=== PATIENT | female | born 1990 | race Two or more races ===

== ENCOUNTER 2017-07-02 22:36 | Emergency (ER) | payer MEDICAID ==
[~2017-07-02] VITALS: Ht 152.4 cm; Wt 92.5 kg
[~2017-07-02 22:36] MED LIST: PREN-96 PO
[2017-07-02 23:34] LABS: Basophils # (auto) 0.2 uL; Eosinophils # (auto) 0.6 uL; Eosinophils % (auto) 3.8 % (0.0-7.0); Hemoglobin 15.7 g/dL (12.2-16.2); Lymphocytes # (auto) 4.1 uL; Mean Corpuscular Hemoglobin 29.9 pg (28.0-32.0); Mean Corpuscular Hgb Conc. 33.4 g/dL (32.0-36.0); Mean Corpuscular Volume 89.6 fL (80.0-100.0); Mean Platelet Volume 9.6 fL (7.4-10.4); Monocytes # (auto) 0.9 uL; Monocytes % (auto) 5.6 % (0.0-12.0); Neutrophils % (auto) 63.6 % (37.0-80.0); Platelet Count (auto) 344 10^3/uL (140-450); Red Cell Distribution Width 12.1 % (11.6-16.0); SUSPECT SEE PRINTOUT; White Blood Cell 15.8 10^3/uL (4.4-10.8)
[2017-07-02 23:35] LABS: Urine Bilirubin Negative (Negative); Urine Blood 2+ /uL (Negative); Urine Color Yellow (Yellow); Urine Glucose Normal (Normal); Urine Ketone TRACE (Negative); Urine Mucus FEW (None Seen); Urine Nitrite Negative (Negative); Urine RBC 2 /hpf (0 - 4); Urine Squamous Epithelial Cell FEW /hpf (<5); Urine pH 5.5 (5.0-8.0)
[2017-07-02 23:51] LABS: Albumin 4.1 g/dL (3.4-5.0); BUN/Creatinine Ratio 17.3; Calcium 8.9 mg/dL (8.5-10.1); Potassium 3.8 mmol/L (3.5-5.1)
[2017-07-02 23:54] LABS: Bilirubin, Total 0.4 mg/dL (0.2-1.0); Total Protein 8.1 g/dL (6.4-8.2)
[2017-07-03 00:29] LABS: INR 0.99 (0.9-1.15); Prothrombin Time 10.8 sec (9.37-12.3)
[2017-07-03 03:18] LABS: Partial Thromboplastin Time 27.5 sec (22.64-33.71)
[2017-07-03 07:23] VITALS: BP 129/77
== END 2017-07-03 07:24 | disposition home or self-care (01) ==
LOC: ER 22:36
DX: K64.4 Residual hemorrhoidal skin tags (principal); K76.0 Fatty (change of) liver, not elsewhere classified; I88.0 Nonspecific mesenteric lymphadenitis; R94.5 Abnormal results of liver function studies; F12.10 Cannabis abuse, uncomplicated
CPT/HCPCS: 36415; 74176; 80053; 81001; 81025; 82150; 82270; 83690; 85025; 85610; 85730

== ENCOUNTER 2017-11-08 08:33 | Emergency (ER) | payer MEDICAID ==
[~2017-11-08] VITALS: Ht 154.9 cm; Wt 90.7 kg
[2017-11-08 09:00] VITALS: BP 123/84
== END 2017-11-08 10:05 | disposition home or self-care (01) ==
LOC: ER 08:33
DX: J20.9 Acute bronchitis, unspecified (principal)

== ENCOUNTER 2018-06-15 17:12 | Emergency (ER) | payer MEDICAID ==
[~2018-06-15] VITALS: Ht 152.4 cm; Wt 90.7 kg
[2018-06-15 17:20] VITALS: BP 145/78
== END 2018-06-15 20:04 | disposition home or self-care (01) ==
LOC: ER 17:12
DX: J02.9 Acute pharyngitis, unspecified (principal)

== ENCOUNTER 2019-01-26 10:39 | Emergency (ER) | payer MEDICAID ==
[~2019-01-26] VITALS: Ht 152.4 cm; Wt 94.8 kg
[2019-01-26 12:42] VITALS: BP 124/63
== END 2019-01-26 13:17 | disposition home or self-care (01) ==
LOC: ER 10:43
DX: L03.211 Cellulitis of face (principal); F12.90 Cannabis use, unspecified, uncomplicated; Z79.899 Other long term (current) drug therapy
CPT/HCPCS: 81025

== ENCOUNTER 2019-03-23 09:07 | Emergency (ER) | payer MEDICAID ==
[~2019-03-23] VITALS: Ht 152.4 cm; Wt 91.6 kg
[2019-03-23 09:16] VITALS: BP 123/67
== END 2019-03-23 10:09 | disposition home or self-care (01) ==
LOC: ER 09:07
DX: B37.89 Other sites of candidiasis (principal); M54.5 Low back pain; F12.10 Cannabis abuse, uncomplicated

== ENCOUNTER 2022-03-17 03:01 | Inpatient (IN) | payer MEDICAID ==
[~2022-03-17] VITALS: Ht 162.8 cm; Wt 93.0 kg
[2022-03-17 06:59] LABS: Basophils # (auto) 0.2 10 ^3/uL (0-0.2); Basophils % (auto) 1.1 % (0.0-2.0); Eosinophils # (auto) 0.2 10 ^3/uL (0-0.8); Eosinophils % (auto) 1.3 % (0.0-7.0); Hematocrit 47.1 % (36.0-46.0); Hemoglobin 16.4 g/dL (12.2-16.2); Lymphocytes # (auto) 2.7 10 ^3/uL (0.4-5.4); Mean Corpuscular Hemoglobin 31.8 pg (28.0-32.0); Mean Corpuscular Hgb Conc. 34.7 g/dL (32.0-36.0); Mean Corpuscular Volume 91.5 fL (80.0-100.0); Monocytes # (auto) 0.8 10 ^3/uL (0-1.3); Monocytes % (auto) 3.9 % (0.0-12.0); Neutrophils # (auto) 15.4 10 ^3/uL (1.6-8.6); Neutrophils % (auto) 79.7 % (37.0-80.0); Nucleated Red Blood Cells % 0.1 %; Red Blood Cells 5.14 10^6/uL (4.0-5.20); Red Cell Distribution Width 13.9 % (11.8-14.3); White Blood Cell 19.3 10^3/uL (4.4-10.8)
[2022-03-17 07:22] LABS: Potassium 3.9 mmol/L (3.5-5.1)
[2022-03-17 07:28] LABS: Albumin 3.7 g/dL (3.4-5.0); BUN/Creatinine Ratio 12.5; Bilirubin, Total 1.4 mg/dL (0.2-1.0); Calcium 9.1 mg/dL (8.5-10.1); Total Protein 8.8 g/dL (6.4-8.2)
[2022-03-17] MEDS ORDERED: METOCLOPRAMIDE HCL 5MG/ml INJ 2ml VIAL IV ONE (08:30)
[2022-03-17] MEDS ORDERED: KETOROLAC TROMETH 30 MG/ML 1ML VIAL IV ONE (08:30)
[2022-03-17] MEDS ORDERED: SODIUM CHLORIDE 0.9% 1,000 ML IV ONE ×2 (08:45→11:30)
[2022-03-17] MEDS ORDERED: IOHEXOL 300 MG/ML 100ML BOTTLE IJ ONE (12:38)
[2022-03-17] MEDS ORDERED: metroNIDAZOLE 500MG/100ML 100 ML IV ONE (14:00)
[2022-03-17] MEDS ORDERED: cefTRIAXone 1GM/50ML D5W 50 ML IV ONE (14:00)
[2022-03-17 14:32] LABS: Urine Bacteria NONE SEEN /hpf (None Seen); Urine Blood Negative /uL (Negative); Urine Specific Gravity 1.019 (1.001-1.035); Urine WBC 1 /hpf (0 - 5)
[2022-03-17] MEDS ORDERED: hydrALAZINE HCL 20 MG/ML VL IV PRN (15:00)
[2022-03-17] MEDS ORDERED: MORPHINE SULFATE INJECTION 2 MG/ML SYRG IV PRN ×2 (15:00→18:45)
[2022-03-17] MEDS ORDERED: ONDANSETRON HCL 4 MG/2 ML VIAL IV PRN ×2 (15:00→18:45)
[2022-03-17] MEDS ORDERED: DOCUSATE SOD 100 MG CAP PO PRN (15:00)
[2022-03-17] MEDS ORDERED: FAMOTIDINE (10MG/ML) 2ML VL IV ONE (15:00)
[2022-03-17] MEDS ORDERED: HYDROcodone-ACET 5/325MG TAB PO PRN (15:00)
[2022-03-17] MEDS ORDERED: SODIUM CHLORIDE 0.9% 1,000 ML IV SCH (15:00)
[2022-03-17 17:17] LABS: Magnesium 2.1 mg/dL (1.6-2.6)
[2022-03-17] MEDS ORDERED: METOCLOPRAMIDE HCL 5MG/ml INJ 2ml VIAL IV PRN (18:45)
[2022-03-17] MEDS ORDERED: HYDROmorphone HCL 2 MG/ML VL/or syr IV PRN (18:45)
[2022-03-17] MEDS ORDERED: NITROGLYCERIN 0.4 MG SL TAB SL PRN (18:45)
[2022-03-17] MEDS ORDERED: SUCCINYLCHOLINE CHLORIDE 20 MG/ML 10ML VIAL IV ONE (18:46)
[2022-03-17] MEDS ORDERED: BUPIVACAINE W/ EPINEPH 0.25% INJ 50ML MDV ONE (18:46)
[2022-03-17] MEDS ORDERED: MIDAZOLAM HCL 2MG/2ML 2ml VIAL (1mg/ml) ONE (18:49)
[2022-03-17] MEDS ORDERED: fentaNYL CITRATE 100 MCG/2 ML VL ONE (18:49)
[2022-03-17] MEDS ORDERED: ceFAZolin 1GM VL ONE (19:16)
[2022-03-17] MEDS ORDERED: LIDOCAINE 2% (LOCAL ANESTH.) PF 5ml SDV ONE (19:16)
[2022-03-17] MEDS ORDERED: ONDANSETRON HCL 4 MG/2 ML VIAL ONE (19:16)
[2022-03-17] MEDS ORDERED: METOCLOPRAMIDE HCL 5MG/ml INJ 2ml VIAL ONE (19:16)
[2022-03-17] MEDS ORDERED: GLYCOPYRROLATE 0.2 MG/ML 1ML VIAL ONE (19:16)
[2022-03-17] MEDS ORDERED: NEOSTIGMINE 1 MG/ML INJ (10mg/10ML VIAL) ONE (19:16)
[2022-03-17] MEDS ORDERED: PROPOFOL 10 MG/ML 20 ML IV ONE (19:16)
[2022-03-17 20:40] VITALS: BP 114/57
[2022-03-17] MEDS ORDERED: metroNIDAZOLE 500MG/100ML 100 ML IV SCH (22:00)
[2022-03-18] MEDS ORDERED: cefTRIAXone 1GM/50ML D5W 50 ML IV SCH (09:00)
[2022-03-18] MEDS ORDERED: ENOXAPARIN SOD 40 MG/0.4 ML SYRINGE SC SCH (10:00)
[2022-03-18] MEDS ORDERED: FAMOTIDINE (10MG/ML) 2ML VL IV SCH (10:00)
== END 2022-03-17 21:00 | disposition home or self-care (01) | DRG 233 ==
LOC: ER 03:01 → OVERFLOW 18:35
PROVIDERS: ADMIT Hospitalist; ATTEND Hospitalist
PROC: 0DTJ4ZZ Resection of Appendix, Percutaneous Endoscopic Approach (ICD-10-PCS; principal; 2022-03-17 18:51)
DX: K35.33 Acute appendicitis with perforation, localized peritonitis, and gangrene, with abscess (principal); E88.81 Metabolic syndrome and other insulin resistance; D72.829 Elevated white blood cell count, unspecified; E66.01 Morbid (severe) obesity due to excess calories; K21.9 Gastro-esophageal reflux disease without esophagitis; R74.8 Abnormal levels of other serum enzymes; Z82.49 Family history of ischemic heart disease and other diseases of the circulatory system; Z83.3 Family history of diabetes mellitus; Z20.822 Contact with and (suspected) exposure to COVID-19; Z68.35 Body mass index [BMI] 35.0-35.9, adult
CPT/HCPCS: 36415; 71046; 74177; 76705; 76856; 80053; 81001; 81025; 82607; 83690; 83735; 83880; 84100; 84443; 84484; 84702; 85025; 86850; 86900; 86901; 87086; 93005; 96361; 96365; 96368; 96375; G0378; J0330; J0690; J0696; J1885; J2001; J2250; J2405; J2704; J3490

== ENCOUNTER 2023-10-19 07:31 | Emergency (ER) | payer MEDICAID ==
[~2023-10-19] VITALS: Ht 149.9 cm; Wt 102.0 kg
[2023-10-19 08:12] LABS: Basophils # (auto) 0.1 10 ^3/uL (0-0.2); Basophils % (auto) 1.3 % (0.0-2.0); Eosinophils # (auto) 0.6 10 ^3/uL (0-0.8); Eosinophils % (auto) 5.8 % (0.0-7.0); Hematocrit 49.2 % (36.0-46.0); Hemoglobin 16.3 g/dL (12.2-16.2); Lymphocytes % (auto) 30.7 % (10.0-50.0); Mean Corpuscular Hemoglobin 30.6 pg (28.0-32.0); Mean Corpuscular Volume 92.7 fL (80.0-100.0); Monocytes # (auto) 0.5 10 ^3/uL (0-1.3); Monocytes % (auto) 4.7 % (0.0-12.0); Neutrophils # (auto) 5.6 10 ^3/uL (1.6-8.6); Neutrophils % (auto) 57.5 % (37.0-80.0); Nucleated Red Blood Cells % 0.1 %; Red Blood Cells 5.31 10^6/uL (4.0-5.20); Red Cell Distribution Width 14.2 % (11.8-14.3); White Blood Cell 9.7 10^3/uL (4.4-10.8)
[2023-10-19 08:33] LABS: Alanine Aminotransferase 246 U/L (7-40); Alkaline Phosphatase 139 U/L (46-116); Anion Gap 9 (5-15); BUN/Creatinine Ratio 8.5 (10.0-20.0); Blood Urea Nitrogen 5 mg/dL (9-23); Calcium 9.6 mg/dL (8.5-10.1); Carbon Dioxide 24 mmol/L (20-30); Chloride 106 mmol/L (98-107); Glucose 112 mg/dL (74-106); Potassium 4.2 mmol/L (3.5-5.1); Sodium 139 mmol/L (136-145)
[2023-10-19 08:34] LABS: Albumin 4.7 g/dL (3.2-4.8); Aspartate Aminotransferase 311 U/L (13-40); Bilirubin, Total 0.5 mg/dL (0.2-1.0); Total Protein 8.3 g/dL (5.7-8.2)
[2023-10-19 08:54] LABS: INR 1.1 (0.9-1.15); Partial Thromboplastin Time 29.8 SEC (24.5-34.5); Prothrombin Time 11.5 sec (9.3-11.8)
[2023-10-19] MEDS ORDERED: ALBUAER3 IN (11:10)
[2023-10-19] MEDS ORDERED: PRED20TA2 PO (11:12)
[2023-10-19 11:48] VITALS: BP 137/82; PULSE 84; RESP 18; TEMP 98.8; O2SAT 98
== END 2023-10-19 11:17 | disposition home or self-care (01) ==
LOC: ER 07:31
DX: J45.909 Unspecified asthma, uncomplicated (principal); R09.1 Pleurisy; Z79.899 Other long term (current) drug therapy
CPT/HCPCS: 36415; 71045; 80053; 84484; 85025; 85610; 85730; 93005

== ENCOUNTER 2024-01-18 19:52 | Emergency (ER) | payer MEDICAID ==
[~2024-01-18] VITALS: Ht 149.9 cm; Wt 100.0 kg
[~2024-01-18 19:52] MED LIST changes: +ALBUAER3 IN; +PRED20TA2 PO
[2024-01-18 21:21] LABS: Urine WBC None Seen /hpf (0 - 5)
[2024-01-18 21:32] LABS: Urine Bacteria NONE SEEN /hpf (None Seen); Urine Blood Negative /uL (Negative); Urine Clarity Clear (Clear); Urine Color Colorless (Yellow); Urine Protein, UAD Negative (Negative); Urine Specific Gravity 1.002 (1.001-1.035); Urine Urobilinogen Normal (Negative); Urine pH 5.5 (5.0-8.0)
[2024-01-18 21:37] LABS: Basophils # (auto) 0.3 10 ^3/uL (0-0.2); Basophils % (auto) 2.1 % (0.0-2.0); Eosinophils # (auto) 0.9 10 ^3/uL (0-0.8); Eosinophils % (auto) 5.9 % (0.0-7.0); Hematocrit 47.8 % (36.0-46.0); Lymphocytes # (auto) 4.7 10 ^3/uL (0.4-5.4); Lymphocytes % (auto) 30.4 % (10.0-50.0); Mean Corpuscular Hemoglobin 30.9 pg (28.0-32.0); Mean Corpuscular Hgb Conc. 33.4 g/dL (32.0-36.0); Mean Corpuscular Volume 92.3 fL (80.0-100.0); Monocytes # (auto) 0.7 10 ^3/uL (0-1.3); Monocytes % (auto) 4.3 % (0.0-12.0); Neutrophils % (auto) 57.3 % (37.0-80.0); Nucleated Red Blood Cells % 0.1 %; Red Blood Cells 5.18 10^6/uL (4.0-5.20); Red Cell Distribution Width 14.6 % (11.8-14.3); White Blood Cell 15.6 10^3/uL (4.4-10.8)
[2024-01-18 21:46] LABS: Alanine Aminotransferase 220 U/L (7-40); Albumin 4.5 g/dL (3.2-4.8); Alkaline Phosphatase 124 U/L (46-116); Anion Gap 9 (5-15); Aspartate Aminotransferase 176 U/L (13-40); Bilirubin, Total 0.4 mg/dL (0.2-1.0); Carbon Dioxide 22 mmol/L (20-30); Chloride 106 mmol/L (98-107); Glucose 146 mg/dL (74-106); Lipase 32 U/L (12-53); Potassium 4.1 mmol/L (3.5-5.1); Sodium 137 mmol/L (136-145); Total Protein 8.1 g/dL (5.7-8.2)
[2024-01-18 22:08] LABS: BUN/Creatinine Ratio 8.5 (10.0-20.0); Blood Urea Nitrogen < 5 mg/dL (9-23)
[2024-01-19] MEDS ORDERED: MET500T PO (00:12)
[2024-01-19] MEDS ORDERED: CIPR-173 PO (00:12)
[2024-01-19 00:38] VITALS: BP 122/76; PULSE 111; RESP 18; TEMP 98.4
[2024-01-19 00:39] VITALS: O2SAT 95
== END 2024-01-19 00:45 | disposition home or self-care (01) ==
LOC: ER 19:52
DX: K52.9 Noninfective gastroenteritis and colitis, unspecified (principal); R16.2 Hepatomegaly with splenomegaly, not elsewhere classified; J45.909 Unspecified asthma, uncomplicated; F12.10 Cannabis abuse, uncomplicated; Z32.02 Encounter for pregnancy test, result negative
CPT/HCPCS: 36415; 74176; 80053; 81001; 81025; 83690; 85025

== ENCOUNTER 2024-04-04 08:35 | Emergency (ER) | payer MEDICAID ==
[~2024-04-04] VITALS: Ht 149.9 cm; Wt 103.3 kg
[~2024-04-04 08:35] MED LIST changes: +CIPR-173 PO; +MET500T PO
[2024-04-04 09:01] VITALS: BP 147/81; PULSE 91; RESP 18; TEMP 98.2; O2SAT 97
[2024-04-04] MEDS ORDERED: IBUP1TAB5 PO (09:32)
[2024-04-04] MEDS ORDERED: CALA1SUS2 EX (09:32)
[2024-04-04] MEDS ORDERED: VALA500T33 PO (09:32)
[2024-04-04] MEDS: KETOROLAC TROMETH 60MG/2ML VIAL IM ONE (09:32)
[2024-04-04] MEDS ORDERED: METH4PAK PO (09:32)
== END 2024-04-04 09:33 | disposition home or self-care (01) ==
LOC: ER 08:41
DX: B02.9 Zoster without complications (principal); F12.10 Cannabis abuse, uncomplicated; J45.909 Unspecified asthma, uncomplicated; Z90.49 Acquired absence of other specified parts of digestive tract; Z79.899 Other long term (current) drug therapy
CPT/HCPCS: 96372; 99283; J1885

== ENCOUNTER 2025-01-21 20:59 | Emergency (ER) | payer MEDICAID ==
[~2025-01-21] VITALS: Ht 121.9 cm; Wt 106.1 kg
[~2025-01-21 20:59] MED LIST changes: +CALA1SUS2 EX; +IBUP1TAB5 PO; +METH4PAK PO; +VALA500T33 PO
--- NOTE | 2025-01-21 22:01 | ED.PDOC ---
History of Present Illness(SKN HPI Comments 34 year old female presents to the ED with chief complaint of abscess. Patient reports that she has been experiencing an abscess to her buttocks for the past 3 days. Patient relays that she is currently 10 weeks . Patient states she took Tylenol at 0800 with no relief. Patient denies any radiation of pain, drainage, fever, or chills. Time Seen by MD: 21:59 Primary Care Provider: Liz History of Present Illness: Nurses Notes, Medications, Allergies Allergies: Coded Allergies: NO KNOWN ALLERGIES (Unverified , 03/23/19) Home Meds Active Scripts Calamine-Zinc Oxide (Calamine 8-8 %) 1 Tawnya Tawnya, 1 APPLIC EX QID for 10 Days, #1 BOTTLE 0 Refills Prov:ERYN PARISI NAIL SPECIALIST 04/04/24 Ibuprofen Micronized (Ibuprofen) 600 Mg Tab, 600 MG PO TIDPRN PRN for 10 Days, #30 TAB 0 Refills Prov:ERYN PARISI NP 04/04/24 Methylprednisolone (Medrol Dosepak) 4 Mg Devaughn, 4 MG PO UD, #21 TAB 0 Refills UAD Prov:ERYN PARISI NAIL SPECIALIST 04/04/24 Valacyclovir Hcl (Valacyclovir Hcl) 500 Mg Tab, 2 TAB PO TID for 10 Days, #60 TAB 0 Refills Prov:ERYN PARISI NP 04/04/24 Metronidazole (Metronidazole) 500 Mg Tab, 500 MG PO TID for 7 Days, #21 TAB Prov:VIJAY FLORES PAC 01/19/24 Ciprofloxacin Hcl (Cipro) 500 Mg Tab, 1 TAB PO BID for 7 Days, #14 TAB Prov:VIJAY FLORES PAC 01/19/24 Prednisone (Prednisone) 20 Mg Tab, 60 MG PO DAILY for 3 Days, #9 MG Prov:TIESHA TAN MD 10/19/23 Albuterol Sulfate (VENTOLIN MDI) 90 Mcg Ih, 90 MCG IN Q4HP PRN for 7 Days, #1 MCG Prov:TIESHA TAN MD 10/19/23 Reported Medications Vit W/ Ferrous Fumara ( One Daily) Daily Tab, 1 TAB PO DAILY, #90 TAB 3 Refills 12/29/14 Information Source: Patient Mode of Arrival: Ambulatory Severity: Moderate Timing: Days Duration: Since onset Prehospital treatment: None Location: Buttock Mechanism: Spontaneous Onset Object: None Condition of Object: None Retained Foreign Body: No Wound Type: Abscess Immunization Status of Animal: NA Tetanus: UTD Associated Signs and Symptoms: Redness, Swelling Past Medical History PAST MEDICAL HISTORY: Asthma Surgical History: Appendectomy GRAVITY FLOW IRRIGATOR History: No Pertinent GRAVITY FLOW IRRIGATOR History Family History Family History: Unknown Social History Smoker: Non-Smoker Alcohol: Occasionally Drugs: Marijuana Lives In: Home Constitutional: denies: chills, diaphoresis, fatigue, fever, malaise, sweats, weakness, others EENTM: denies: blurred vision, double vision, ear bleeding, ear discharge, ear drainage, ear pain, ear ringing, eye pain, eye redness, hearing loss, mouth pain, mouth swelling, nasal discharge, nose bleeding, nose congestion, nose pain, photophobia, tearing, throat pain, throat swelling, voice changes, others Respiratory: denies: cough, hemoptysis, orthopnea, SOB at rest, shortness of breath, SOB with excertion, stridor, wheezing, others Cardiovascular: denies: chest pain, dizzy spells, diaphoresis, Dyspnea on exertion, edema, irregular heart beat, left arm pain, lightheadedness, palpitations, PND, syncope, others Gastrointestinal: denies: abdomen distended, abdominal pain, blood streaked bowels, constipated, diarrhea, dysphagia, difficulty swallowing, hematemesis, melena, nausea, poor appetite, poor fluid intake, rectal bleeding, rectal pain, vomiting, others Genitourinary: denies: abnormal vagina bleeding, burning, dyspareunia, dysuria, flank pain, frequency, hematuria, incontinence, pain, , vagina discharge, urgency, others Neurological: denies: dizziness, fainting, headache, left sided numbness, left sided weakness, numbness, paresthesia, pre-existing deficit, right sided numbness, right sided weakness, seizure, speech problems, tingling, tremors, weakness, others Musculoskeletal: denies: back pain, gout, joint pain, joint swelling, muscle pain, muscle stiffness, neck pain, others Integumetry: reports: others (abscess to buttocks); denies: bruises, change in color, change in hair/nails, dryness, laceration, lesions, lumps, rash, wounds Allergic/Immunocompromised: denies: Difficulty Healing, Frequent Infections, Hi ves, Itching, others Hematologic/Lymphatic: denies: anemia, blood clots, easy bleeding, easy bruising, swollen glands, others Endocrine: denies: excessive hunger, excessive sweating, excessive thirst, excessive urination, flushing, intolerance to cold, intolerance to heat, unexplained weight gain, unexplained weight loss, others Psychiatric: denies: anxiety, bipolar disorder, depression, hopeless, panic disorder, schizophrenia, sleepless, suicidal, others All Other Systems: Reviewed and Negative Physical Exam General Appearance: Moderate Distress (Pain related to her buttock abscess), Normal HEENT: Normal ENT Inspection, Pharynx Normal, TMs Normal Neck: Full Range of Motion, Non-Tender, Normal, Normal Inspection Respiratory: Chest Non-Tender, Lungs Clear, No Accessory Muscle Use, No Respiratory Distress, Normal Breath Sounds Cardiovascular: No Edema, No JVD, No Murmur, No Gallop, Normal Peripheral Pulses, Regular Rate/Rhythm Breast Exam: Deferred Gastrointestinal: No Organomegaly, Non Tender, No Pulsatile Mass, Normal Bowel Sounds, Soft Genitalia: Deferred Pelvic: Deferred Rectal: Deferred Extremities: No calf tenderness, Normal capillary refill, Normal inspection, Normal range of motion, Non-tender, No pedal edema Neurologic: Alert, warp tying machine tender II-XII nml as Tested, No Motor Deficits, Normal Affect, Normal Mood, No Sensory Deficits Cerebellar Function: Normal Reflexes: Normal Skin: Dry, Normal Color, Warm, Wounds ( patient displays a 6 cm loculated abscess to the left gluteal region extending into the gluteal fold. Patient has multiple punctate lesions throughout her buttocks revealing a history of folliculitis. Two points of confluence noted.) Lymphatic: No Adenopathy Was a procedure done? Was a procedure done?: Yes Sedation Sedation?: No Other Procedure Notes 4 cc of 1% lidocaine was utilized for local anesthesia at two sites. Sterile field was placed. Eleven blade was utilized to perform an incision and drainage. Copious serosanguineous fluid was expressed. Patient tolerated procedure well. Bandage was applied. Differential Diagnosis (INTG) Differential Diagnosis: Other ( Abscess) X-Ray, Labs, Meds, VS Vital Signs Date Time Temp Pulse Resp B/P (MAP) Pulse Ox O2 Delivery O2 Flow Rate FiO2 01/21/25 22:02 98.6 122 20 136/80 (98) 99 98.6 X-Ray, Labs, Meds, VS Comment Patient tolerated I and D procedure well. Advised patient utilize antibiotics as directed until completion. Due to the nature of the tissue in the buttocks region , patient may need to follow up with the primary care provider for surgical evaluation if abscesses not resolved. Time of 1ST Reevaluation: 22:22 Reevaluation 1ST: Improved Consultation: PCP Patient Education/Counseling: Diagnosis, Treatment Family Education/Counseling: Diagnosis, Treatment, No Family Present Departure 1 Departure Time of Disposition: 22:22 Impression: Primary Impression: Abscess Disposition: HOME / SELF CARE / HOMELESS Condition: Stable Additional Instructions: Advised patient utilize antibiotics as directed until completion as well as pain medication as needed. If abscess does not resolve, patient may need to follow up with the primary care provider for Dermatology or surgical evaluation. e-Prescriptions Acetaminophen (Acetaminophen) 500 Mg Tab 500 MG PO Q4HP PRN, #30 TAB Prov: SAVANAH MOLINA PAC 01/21/25 Cephalexin (KEFLEX CAPSULE) 250 Mg Cp 1 CAP PO QID for 10 Days, #40 CAP Prov: SAVANAH MOLINA PAC 01/21/25 Discharged With: Self, Friend Critical Care Note Critical Care Time?: No Stability Stability form required: No Heart Score Heart Score: Heart Score Response (Comments) Value History N/A 0 EKG N/A 0 Age N/A 0 Risk Factors N/A 0 Troponin N/A 0 Total 0 I personally scribed for SAVANAH MOLINA PAC ([email or web address]) on 01/21/25 at 22:01. Electronically submitted by Jan Restrepo ([email or web address]). SAVANAH MOLINA PAC Jan 21, 2025 22:01
[2025-01-21] MEDS ORDERED: ACET500T58 PO (22:24)
[2025-01-21] MEDS ORDERED: CEPH250C PO (22:24)
[2025-01-21] MEDS: LIDOCAINE 1% HCL (LOCAL ANESTH.) INJ 20ML MDV ID ONE (22:25)
[2025-01-21 22:37] VITALS: BP 149/73; PULSE 122; RESP 19; TEMP 99.5; O2SAT 96
[2025-01-21] MEDS: ACETAMINOPHEN 325 MG TAB PO ONE (22:42)
== END 2025-01-21 23:12 | disposition home or self-care (01) ==
LOC: ER 20:59
DX: O99.711 Diseases of the skin and subcutaneous tissue complicating pregnancy, first trimester (principal); L02.31 Cutaneous abscess of buttock; O99.511 Diseases of the respiratory system complicating pregnancy, first trimester; J45.909 Unspecified asthma, uncomplicated; Z3A.10 10 weeks gestation of pregnancy; Z90.49 Acquired absence of other specified parts of digestive tract
CPT/HCPCS: 10060; 99283; J2003

== ENCOUNTER → 2025-02-21 | Outpatient (CLI) | payer MEDICAID ==
[~2025-02-21] MED LIST changes: +ACET500T58 PO; +CEPH250C PO
[2025-02-21 12:10] LABS: Basophils # (auto) 0.1 10 ^3/uL (0-0.2); Basophils % (auto) 0.8 % (0.0-2.0); Eosinophils # (auto) 0.6 10 ^3/uL (0-0.8); Eosinophils % (auto) 4.6 % (0.0-7.0); Hematocrit 36.2 % (36.0-46.0); Hemoglobin 12.5 g/dL (12.2-16.2); Lymphocytes # (auto) 3.2 10 ^3/uL (0.4-5.4); Lymphocytes % (auto) 24.6 % (10.0-50.0); Mean Corpuscular Hemoglobin 30.8 pg (28.0-32.0); Mean Corpuscular Hgb Conc. 34.6 g/dL (32.0-36.0); Monocytes # (auto) 0.6 10 ^3/uL (0-1.3); Monocytes % (auto) 4.4 % (0.0-12.0); Neutrophils # (auto) 8.5 10 ^3/uL (1.6-8.6); Neutrophils % (auto) 65.6 % (37.0-80.0); Platelet Count (auto) 273 10^3/uL (140-450); Red Blood Cells 4.06 10^6/uL (4.0-5.20); Red Cell Distribution Width 13.2 % (11.8-14.3); White Blood Cell 12.9 10^3/uL (4.4-10.8)
[2025-02-21 12:35] LABS: Alanine Aminotransferase 22 U/L (7-40); Alkaline Phosphatase 81 U/L (46-116); Anion Gap 10 (5-15); BUN/Creatinine Ratio 12.5 (10.0-20.0); Carbon Dioxide 22 mmol/L (20-31); Chloride 105 mmol/L (98-107); Potassium 3.5 mmol/L (3.5-5.1); Sodium 137 mmol/L (136-145); Total Protein 7.8 g/dL (5.7-8.2)
[2025-02-21 12:36] LABS: Albumin 4.6 g/dL (3.2-4.8); Aspartate Aminotransferase 22 U/L (13-40); Bilirubin, Total 0.5 mg/dL (0.2-1.0)
[2025-02-21 12:39] LABS: Amphetamine Screen, Urine Neg (NEGATIVE); Barbiturate Scree,Urine Neg (NEGATIVE); Benzodiazephine Screen, Urine Neg (NEGATIVE); Cannabinoid Screen, Urine Neg (NEGATIVE); Cocaine Screen, Urine Neg (NEGATIVE); Opiate Scree,Urine Neg (NEGATIVE); Phencyclidine Screen, Urine Neg (NEGATIVE)
[2025-02-21 12:50] LABS: Blood Urea Nitrogen 6 mg/dL (9-23); Glucose 115 mg/dL (74-106)
[2025-02-21 14:01] LABS: Thyroid Stimulating Hormone 1.5 uIU/mL (0.55-4.78)
[2025-02-21 14:16] LABS: Beta HCG, Quantitative 14141.2 mIU/mL (1.5-4.2)
[2025-02-22 08:07] LABS: Varicella Zoster IgG Antibody Reactive (Non Reactive)
[2025-02-22 13:07] LABS: Chlamydia Trachomatis, NAA Negative (Negative); Neisseria gonorrhoeae, NAA Negative (Negative)
== END | disposition home or self-care (01) ==
LOC: LAB 11:04
DX: O23.40 Unspecified infection of urinary tract in pregnancy, unspecified trimester (principal); Z31.430 Encounter of female for testing for genetic disease carrier status for procreative management; Z36.0 Encounter for antenatal screening for chromosomal anomalies; N39.0 Urinary tract infection, site not specified; Z3A.00 Weeks of gestation of pregnancy not specified
CPT/HCPCS: 36415; 80053; 80307; 83036; 84439; 84443; 84702; 85025; 86703; 86762; 86787; 86850; 86900; 86901; 87086; 87340; 87902

== ENCOUNTER 2025-06-07 10:04 | Outpatient (CLI) | payer MEDICAID ==
[2025-06-07 10:41] LABS: Alanine Aminotransferase 17 U/L (7-40); Albumin 4.6 g/dL (3.2-4.8); Alkaline Phosphatase 104 U/L (46-116); Anion Gap 9 (5-15); BUN/Creatinine Ratio 10.2 (10.0-20.0); Calcium 9.3 mg/dL (8.7-10.4); Carbon Dioxide 24 mmol/L (20-31); Chloride 106 mmol/L (98-107); Potassium 4.3 mmol/L (3.5-5.1); Sodium 139 mmol/L (136-145); Total Protein 7.3 g/dL (5.7-8.2)
[2025-06-07 10:42] LABS: Bilirubin, Total 0.4 mg/dL (0.2-1.0)
[2025-06-07 10:54] LABS: Blood Urea Nitrogen 6 mg/dL (9-23); Glucose 130 mg/dL (74-106)
[2025-06-07 11:30] LABS: Hematocrit 36.0 % (36.0-46.0); Hemoglobin 12.4 g/dL (12.2-16.2); Mean Corpuscular Hemoglobin 29.0 pg (28.0-32.0); Mean Corpuscular Volume 84.0 fL (80.0-100.0); Nucleated Red Blood Cells % 0.0 %
[2025-06-08 20:07] LABS: Chlamydia Trachomatis, NAA Negative (Negative); Neisseria gonorrhoeae, NAA Negative (Negative)
== END 2025-06-07 17:00 | disposition home or self-care (01) ==
LOC: LAB 10:04
PROVIDERS: ATTEND Obstetrics & Gynecology
DX: Z34.93 Encounter for supervision of normal pregnancy, unspecified, third trimester (principal); Z3A.33 33 weeks gestation of pregnancy; Z79.899 Other long term (current) drug therapy
CPT/HCPCS: 36415; 80053; 82951; 83036; 85025; 86780; 86850; 86900; 86901

== ENCOUNTER 2025-07-01 13:41 | Observation (INO) | payer MEDICAID ==
--- NOTE | 2025-07-01 14:31 | DVHDS2 ---
Physician Discharge Progress N Final Diagnosis: 32 wks gdm,macrosmia Operations or Procedures: Operations or Procedures nst reactive reviwed,sono Condition on Discharge: Good Disposition: Home Discharge Instructions: Diet: Consistent carbohydrate Activity: No Restrictions, As Tolerated Medications: na Follow Up Care: Specialist: 3d Discharge Statement: "Patient was advised to return to the ER or call 911 if any headaches, dizziness, shortness of breath, chest pain, abdominal pain, bleeding, fevers, or worsening of medical condition. Patient was counseled about treatment plan, medications, possible side effects, patientverbalized understanding. All questions were answered to the best of my ability. This discharge took greater then 30 minutes in planning, reviewing documentation, counseling the patient, and discussing with other team members." Visit Coding OBGYN Date of Service: Jul 01, 2025 Billing Provider: CANDACE MARTIN DO HEATING WORKER Common Visit Codes: [id number] OBS CARE (HIGH) HEATING WORKER Procedure Codes: 62093-82- NON-STRESS TEST CANDACE MARTIN DO Jul 01, 2025 14:31
--- NOTE | 2025-07-01 14:52 | DVH ---
BIOPHYSICAL PROFILE HISTORY: GDMA2,Macro Comparison Study: None TECHNIQUE: Multiple real-time grayscale sonographic images through the gravid uterus of the fetus wi th duplex Doppler color flow and M-mode spectral analysis, transabdominal only. FINDINGS: BIOPHYSICAL PROFILE: breathing score: 2 movement score: 2 tone score: 2 Quantitative XANDER score: 2 (XANDER: 9.5 cm.) Total score: 8/8 The cervix was not well visualized. Single live fetus in vertex presentation. heart rate 151 beats per minute. Anterior placenta, grade 2, without previa or abruption Possible nuchal cord. IMPRESSION: 1. Single intrauterine in vertex presentation with heart rate of 151 beats per minut e. 2. Possible nuchal cord. 3. Biophysical profile score 8/8.
[2025-07-01] MEDS ORDERED: METF-370 PO (15:01)
== END 2025-07-01 15:09 | disposition home or self-care (01) ==
LOC: UNDOADMOB 13:41 → LDRP 13:41
PROVIDERS: ADMIT Obstetrics & Gynecology; ATTEND Obstetrics & Gynecology
DX: O24.419 Gestational diabetes mellitus in pregnancy, unspecified control (principal); O36.63X0 Maternal care for excessive fetal growth, third trimester, not applicable or unspecified; Z3A.32 32 weeks gestation of pregnancy; Z79.899 Other long term (current) drug therapy
CPT/HCPCS: 59025; 76819; 81002; 82948; 94760; G0378

== ENCOUNTER 2025-07-04 08:35 | Observation (INO) | payer MEDICAID ==
[~2025-07-04 08:35] MED LIST changes: +METF-370 PO
--- NOTE | 2025-07-04 10:04 | DVH ---
BIOPHYSICAL PROFILE HISTORY: Gdma2/Macro TECHNIQUE: Multiple real-time grayscale sonographic images through the gravid uterus of the fetus wi th duplex Doppler color flow. FINDINGS: BIOPHYSICAL PROFILE: breathing score: 2 movement score: 2 tone score: 2 Quantitative XANDER score: 2 Total score: 8 out of 8 Cephalic lie. Placenta anteriorly positioned. XANDER 14 cm. heart rate of 154 beats per minute. IMPRESSION: Biophysical profile score: 8 out of 8
--- NOTE | 2025-07-05 07:31 | DVHDS2 ---
Physician Discharge Progress N Final Diagnosis: gdm 33wks Operations or Procedures: Operations or Procedures nst reactive reviwed,sono Condition on Discharge: Good Disposition: Home Discharge Instructions: Diet: Regular Activity: No Restrictions, As Tolerated Medications: na Follow Up Care: Specialist: 4d Discharge Statement: "Patient was advised to return to the ER or call 911 if any headaches, dizziness, shortness of breath, chest pain, abdominal pain, bleeding, fevers, or worsening of medical condition. Patient was counseled about treatment plan, medications, possible side effects, patientverbalized understanding. All questions were answered to the best of my ability. This discharge took greater then 30 minutes in planning, reviewing documentat ion, counseling the patient, and discussing with other team members." Visit Coding OBGYN Date of Service: Jul 04, 2025 Billing Provider: CANDACE MARTIN DO DRIVER EDUCATION ROAD INSTRUCTOR Common Visit Codes: [id number] OBS CARE (HIGH) DRIVER EDUCATION ROAD INSTRUCTOR Procedure Codes: 68834-03- NON-STRESS TEST CANDACE MARTIN DO Jul 05, 2025 07:31
== END 2025-07-04 10:16 | disposition home or self-care (01) ==
LOC: LDRP 08:35
PROVIDERS: ADMIT Obstetrics & Gynecology; ATTEND Obstetrics & Gynecology
DX: O24.419 Gestational diabetes mellitus in pregnancy, unspecified control (principal); Z3A.33 33 weeks gestation of pregnancy; Z98.890 Other specified postprocedural states
CPT/HCPCS: 59025; 76819; 81002; 82948; 82962; 94760; G0378

== ENCOUNTER 2025-07-07 09:51 | Observation (INO) | payer MEDICAID ==
--- NOTE | 2025-07-07 11:34 | DVH ---
CLINICAL HISTORY: GDMA2/Macro COMPARISON: US BIOPHYSICAL PROFILE on DOS: 07/04/25, US BIOPHYSICAL PROFILE on DOS: 07/01/25, PELVIC on DOS: 03/17/22 TECHNIQUE: biophysical profile was performed. Transabdominal sonographic images of the fetus we re obtained. FINDINGS: The fetus is in cephalic position. heart rate measures 172 BPM. Amniotic fluid index measures 15.5 cm. The placenta is anterior in position without visualized evidence for previa or abru ption. BPP profile is an overall score of 8/8, with 2/2 points for breathing, with at least one episode of breathing over a 30 second duration during a 30 minute observation, 2/2 points for m ovements, with 3 or more discrete body or limb movements, 2/2 points for tone, with one or more episodes of extremity extension with return to flexion, or opening and closing of hand, and 2/ 2 points for amniotic fluid, with at least 1 pocket of amniotic fluid that measures 2 cm in 2 perpend icular planes. IMPRESSION: BPP score of 8/8.
--- NOTE | 2025-07-07 14:41 | DVHDS2 ---
Physician Discharge Progress N Final Diagnosis: gdm a2,macrosomia Operations or Procedures: Operations or Procedures nst reactive reviwed,sono Condition on Discharge: Good Disposition: Home Discharge Instructions: Diet: Consistent carbohydrate Activity: No Restrictions, As Tolerated Medications: na Follow Up Care: Specialist: 3d Discharge Statement: "Patient was advised to return to the ER or call 911 if any headaches, dizziness, shortness of breath, chest pain, abdominal pain, bleeding, fevers, or worsening of medical condition. Patient was counseled about treatment plan, medications, possible side effects, patientverbalized understanding. All questions were answered to the best of my ability. This discharge took greater then 30 minutes in planning, reviewing documentation, counseling the patient, and discussing with other team members." Visit Coding OBGYN Date of Service: Jul 07, 2025 Billing Provider: CANDACE MARTIN DO BACON STRINGER Common Visit Codes: 04655-[id number] OBS CARE (HIGH) BACON STRINGER Procedure Codes: 52643-49- NON-STRESS TEST CANDACE MARTIN DO Jul 07, 2025 14:41
== END 2025-07-07 11:46 | disposition home or self-care (01) ==
LOC: LDRP 09:51
PROVIDERS: ADMIT Obstetrics & Gynecology; ATTEND Obstetrics & Gynecology
DX: O36.63X0 Maternal care for excessive fetal growth, third trimester, not applicable or unspecified (principal); O24.419 Gestational diabetes mellitus in pregnancy, unspecified control; Z3A.33 33 weeks gestation of pregnancy; Z98.890 Other specified postprocedural states
CPT/HCPCS: 59025; 76819; 81002; 82948; 82962; 94760; G0378

== ENCOUNTER 2025-07-11 06:06 | Observation (INO) | payer MEDICAID ==
--- NOTE | 2025-07-11 11:38 | DVH ---
BIOPHYSICAL PROFILE HISTORY: GDMA2/Macro TECHNIQUE: Multiple transabdominal real-time grayscale sonographic images through the gravid uterus of the fetus with duplex Doppler color flow and M-mode spectral analysis FINDINGS: BIOPHYSICAL PROFILE: breathing score: 2 movement score: 2 tone score: 2 Quantitative XANDER score: 2 (XANDER: 19 Cm.) Total score: 8 The cervix was not seen Single live fetus in cephalic presentation. heart rate 150 beats per minute. Grade II anterior placenta without previa or abruption IMPRESSION: Biophysical profile score: 8/8
--- NOTE | 2025-07-11 14:23 | DVHDS2 ---
Discharge Summary Date of Admission Jul 11, 2025 at 09:52 Date of Discharge: Jul 11, 2025 Admitting Diagnosis GDM A2 macrosomia 34 and / Wounds: None Labs/Diagnostic Data: Laboratory Results Test 07/11/25 11:53 POC Glucose 102 mg/dl (70-106) Brief Hx & Hospital Course: Patient had ultrasound performed as well as NST reactive ultrasound reassuring Consults/Reason for consult None Operations or Procedures NST performed OB ultrasound performed Condition at Discharge: Good Final Diagnosis/Problems List 34-5/ weeks GDM A2 macrosomia Discharge Disposition: Home Discharge Instruct/Medications Diet: Consistent carbohydrate Activity: Light activity Activity comment: Kick counts labor precautions Follow Up/Referral: Weekly NST BPP Medications: Resume home med Scheduled Calamine-Zinc Oxide (Calamine 8-8 %), 1 APPLIC EX QID Cephalexin (Keflex Capsule), 1 CAP PO QID Ciprofloxacin Hcl (Cipro), 1 TAB PO BID Metformin Hydrochloride (Metformin Hcl), 1,000 MG PO DAILY, (Reported) Methylprednisolone (Medrol Dosepak), 4 MG PO UD Metronidazole (Metronidazole), 500 MG PO TID Prednisone (Prednisone), 60 MG PO DAILY Vit W/ Ferrous Fumara ( One Daily), 1 TAB PO DAILY, (Reported) Valacyclovir Hcl (Valacyclovir Hcl), 2 TAB PO TID Scheduled PRN Acetaminophen (Acetaminophen), 500 MG PO Q4HP PRN Albuterol Sulfate (Ventolin Mdi), 90 MCG IN Q4HP PRN Ibuprofen Micronized (Ibuprofen), 600 MG PO TIDPRN PRN Discharge Statement: "Patient was advised to return to the ER or call 911 if any headaches, dizziness, shortness of breath, chest pain, abdominal pain, bleeding, fevers, or worsening of medical condition. Patient was counseled about treatment plan, medications, possible side effects, patientverbalized understanding. All questions were answered to the best of my ability. This discharge took greater then 30 minutes in planning, reviewing documentation, counseling the patient, and discussing with other team members." ASSESSMENT ASSESSMENT Assessment Visit Coding OBGYN Date of Service: Jul 11, 2025 Billing Provider: EMILIANO TRIVEDI DO HYDRAULIC LIFT OPERATOR Common Visit Codes: 69491-ECJ/OBS SAME DATE (LOW), 24472-JLC/OBS SAME DATE (MOD), 40277-RPS/OBS SAME DATE (HIGH) HYDRAULIC LIFT OPERATOR Procedure Codes: 94348-72- NON-STRESS TEST EMILIANO TRIVEDI DO Jul 11, 2025 14:23
== END 2025-07-11 12:15 | disposition home or self-care (01) ==
LOC: LDRP 09:52
PROVIDERS: ADMIT Obstetrics & Gynecology; ATTEND Obstetrics & Gynecology
DX: O24.419 Gestational diabetes mellitus in pregnancy, unspecified control (principal); O36.60X0 Maternal care for excessive fetal growth, unspecified trimester, not applicable or unspecified; Z3A.34 34 weeks gestation of pregnancy; Z98.890 Other specified postprocedural states
CPT/HCPCS: 59025; 76819; 81002; 82948; 82962; G0378

== ENCOUNTER → 2025-07-13 | Outpatient (CLI) | payer MEDICAID ==
[2025-07-13 11:28] LABS: Hematocrit 37.6 % (36.0-46.0); Hemoglobin 12.8 g/dL (12.2-16.2); Mean Corpuscular Hemoglobin 28.0 pg (28.0-32.0); Mean Corpuscular Volume 82.4 fL (80.0-100.0); Nucleated Red Blood Cells % 0.0 %
[2025-07-15 02:06] LABS: Chlamydia Trachomatis, NAA Negative (Negative); Neisseria gonorrhoeae, NAA Negative (Negative)
== END | disposition home or self-care (01) ==
LOC: LAB 10:53
DX: Z34.80 Encounter for supervision of other normal pregnancy, unspecified trimester (principal); Z3A.00 Weeks of gestation of pregnancy not specified
CPT/HCPCS: 36415; 85025; 86780

== ENCOUNTER 2025-07-14 14:48 | Observation (INO) | payer MEDICAID ==
--- NOTE | 2025-07-14 15:58 | DVH ---
CLINICAL HISTORY: Gestational diabetes. COMPARISON: US BIOPHYSICAL PROFILE on DOS: 07/11/25, US BIOPHYSICAL PROFILE on DOS: 07/07/25, US BIOPHYSI KALLI PROFILE on DOS: 07/04/25 TECHNIQUE: biophysical profile was performed. Transabdominal sonographic images of the fetus we re obtained. FINDINGS: The fetus is in cephalic position. heart rate was variable, with average heart rate of 3 measurements measuring 159 BPM, with the highest heart rate of 173 BPM. Amniotic flui d index measures 13.9 cm. The placenta is anterior in position without evidence of previa or abruptio n seen. BPP profile is an overall score of 8/8, with 2/2 points for breathing, with at least one episode of breathing over a 30 second duration during a 30 minute observation, 2/2 points for m ovements, with 3 or more discrete body or limb movements, 2/2 points for tone, with one or more episodes of extremity extension with return to flexion, or opening and closing of hand, and 2/ 2 points for amniotic fluid, with at least 1 pocket of amniotic fluid that measures 2 cm in 2 perpend icular planes. IMPRESSION: 1. BPP score of 8/8. 2. Additional findings as described above.
--- NOTE | 2025-07-14 16:01 | DVHDS2 ---
Physician Discharge Progress N Final Diagnosis: GDM 35WKS Operations or Procedures: Operations or Procedures NST REACTIVE REVIWED,SONO Condition on Discharge: Good Disposition: Home Discharge Instructions: Diet: Consistent carbohydrate Activity: No Restrictions, As Tolerated Medications: NA Follow Up Care: Specialist: 3D Discharge Statement: "Patient was advised to return to the ER or call 911 if any headaches, dizziness, shortness of breath, chest pain, abdominal pain, bleeding, fevers, or worsening of medical condition. Patient was counseled about treatment plan, medications, possible side effects, patientverbalized understanding. All questions were answered to the best of my ability. This discharge took greater then 30 minutes in planning, reviewing documentation, counseling the patient, and discussing with other team members." Visit Coding OBGYN Date of Service: Jul 14, 2025 Billing Provider: CANDACE MARTIN DO [employer] TECHNICAL LEAD SENIOR DEVELOPER Common Visit Codes: 71622-[id number] OBS CARE (HIGH), 04380-[id number] INP/OBS CARE (HIGH) [employer]ENTUR[employer] TECHNICAL LEAD SENIOR DEVELOPER Procedure Codes: 93496-91- NON-STRESS TEST CANDACE MARTIN DO Jul 14, 2025 16:01
== END 2025-07-14 16:14 | disposition home or self-care (01) ==
LOC: LDRP 14:48
PROVIDERS: ADMIT Obstetrics & Gynecology; ATTEND Obstetrics & Gynecology
DX: O24.419 Gestational diabetes mellitus in pregnancy, unspecified control (principal); Z3A.35 35 weeks gestation of pregnancy; Z98.890 Other specified postprocedural states
CPT/HCPCS: 59025; 76819; 81002; 82948; 82962; 94760; G0378

== ENCOUNTER 2025-07-18 07:53 | Observation (INO) | payer MEDICAID ==
--- NOTE | 2025-07-18 08:35 | DVH ---
CLINICAL HISTORY: Gestational diabetes. COMPARISON: US BIOPHYSICAL PROFILE on DOS: 07/14/25, US BIOPHYSICAL PROFILE on DOS: 07/11/25, US BIOPHYS ICAL PROFILE on DOS: 07/07/25 TECHNIQUE: biophysical profile was performed. Transabdominal sonographic images of the fetus we re obtained. FINDINGS: The fetus is in cephalic position. heart rate measures 151 BPM. Amniotic fluid index measures 11.5 cm. The placenta is anterior in position without evidence for previa or abruption. BPP profile is an overall score of 8/8, with 2/2 points for breathing, with at least one episode of breathing over a 30 second duration during a 30 minute observation, 2/2 points for m ovements, with 3 or more discrete body or limb movements, 2/2 points for tone, with one or more episodes of extremity extension with return to flexion, or opening and closing of hand, and 2/ 2 points for amniotic fluid, with at least 1 pocket of amniotic fluid that measures 2 cm in 2 perpend icular planes. IMPRESSION: BPP score of 8/8.
--- NOTE | 2025-07-19 05:30 | DVHDS2 ---
Discharge Summary Date of Admission Jul 18, 2025 at 07:58 Date of Discharge: Jul 18, 2025 Admitting Diagnosis Thirty-five weeks GDM A2 here for NST BPP both performed both reassuring Wounds: None Labs/Diagnostic Data: Laboratory Results Test 07/18/25 08:36 POC Glucose 112 mg/dl (70-106) Brief Hx & Hospital Course: Patient here for NST BPP both reassuring Consults/Reason for consult None Operations or Procedures BPP NST performed Condition at Discharge: Good Final Diagnosis/Problems List 35 week GDM A2 Discharge Disposition: Home Discharge Instruct/Medications Diet: Consistent carbohydrate Activity: No Restrictions, As Tolerated Follow Up/Referral: As scheduled, kick counts labor precautions sugar precautions Scheduled Calamine-Zinc Oxide (Calamine 8-8 %), 1 APPLIC EX QID Cephalexin (Keflex Capsule), 1 CAP PO QID Ciprofloxacin Hcl (Cipro), 1 TAB PO BID Metformin Hydrochloride (Metformin Hcl), 1,000 MG PO DAILY, (Reported) Methylprednisolone (Medrol Dosepak), 4 MG PO UD Metronidazole (Metronidazole), 500 MG PO TID Prednisone (Prednisone), 60 MG PO DAILY Vit W/ Ferrous Fumara ( One Daily), 1 TAB PO DAILY, (Reported) Valacyclovir Hcl (Valacyclovir Hcl), 2 TAB PO TID Scheduled PRN Acetaminophen (Acetaminophen), 500 MG PO Q4HP PRN Albuterol Sulfate (Ventolin Mdi), 90 MCG IN Q4HP PRN Ibuprofen Micronized (Ibuprofen), 600 MG PO TIDPRN PRN Discharge Statement: "Patient was advised to return to the ER or call 911 if any headaches, dizziness, shortness of breath, chest pain, abdominal pain, bleeding, fevers, or worsening of medical condition. Patient was counseled about treatment plan, medications, possible side effects, patientverbalized understanding. All questions were answered to the best of my ability. This discharge took greater then 30 minutes in planning, reviewing documentation, counseling the patient, and discussing with other team members." ASSESSMENT ASSESSMENT Assessment Visit Coding OBGYN Date of Service: Jul 19, 2025 Billing Provider: EMILIANO TRIVEDI DO CHILD PROTECTION SPECIALIST Common Visit Codes: 88566-NTH/OBS SAME DATE (LOW), 62720-VWV/OBS SAME DATE (MOD), 31760-HXD/OBS SAME DATE (HIGH) CHILD PROTECTION SPECIALIST Procedure Codes: 08144-79- NON-STRESS TEST EMILIANO TRIVEDI DO Jul 19, 2025 05:30
== END 2025-07-18 08:54 | disposition home or self-care (01) ==
LOC: LDRP 07:53 → UNDOADMOB 07:53 → LDRP 07:58 → UNDODISOB 08:54
PROVIDERS: ADMIT Obstetrics & Gynecology; ATTEND Obstetrics & Gynecology
DX: O24.419 Gestational diabetes mellitus in pregnancy, unspecified control (principal); Z3A.35 35 weeks gestation of pregnancy; Z98.890 Other specified postprocedural states
CPT/HCPCS: 59025; 76819; 81002; 82948; 82962; 94760; G0378

== ENCOUNTER 2025-07-21 18:51 | Observation (INO) | payer MEDICAID ==
[~2025-07-21] VITALS: Ht 151.1 cm; Wt 104.3 kg
--- NOTE | 2025-07-21 19:26 | DVH ---
EXAM: US BIOPHYSICAL PROFILE HISTORY: GDM A2 COMPARISON: US BIOPHYSICAL PROFILE on DOS: 07/18/25, US BIOPHYSICAL PROFILE on DOS: 07/14/25, US BIOPHY SICAL PROFILE on DOS: 07/11/25 TECHNIQUE: Multiple transabdominal real-time grayscale sonographic images through the gravid uterus of the fetus with duplex Doppler color flow and M-mode spectral analysis Findings/Impression: Single live intrauterine in vertex presentation with heart rate of 160 bpm. Biophysical profile was performed with 2 points for respirations, 2 points for movement, 2 points for tone and 2 points for amniotic fluid index. Biophysical profile score of 8/8. Amniotic fluid is within normal limits with XANDER 12.3 cm and MVP 4.6 cm. Normal XANDER (5-25 cm) Normal MVP (2-8 cm)
--- NOTE | 2025-07-21 19:59 | DVHDS2 ---
Physician Discharge Progress N Final Diagnosis: scheduled NST/ BPP for GDMA2 Operations or Procedures: Operations or Procedures SUBJECTIVE Gladys Jeong is a 34 yo with IUP at 35w6d presenting for scheduled NST/BPP Denies feeling UCs, vaginal bleeding, or leaking fluid. Endorses positive movement. Denies headache, blurry vision, or epigastric pain. Has been feeling some heartburn this last week and is wondering if that is normal EDC: 08/19/25 Ob Hx: x2 Med Hx: denies Surg Hx: denies Review of Systems: Neuro: No complaints Heart: No complaints Lungs: No complaints GI: No complaints : No complaints Skin: No complaints Extremities: No complaints OBJECTIVE VSS FHR: Baseline: 145 with change to 150 Variability: Moderate Accelerations: Present Decelerations: Absent Category: 1 UCs: 1x, 90 sec Neuro: A&O x4. No apparent distress. Affect appropriate Heart: Regular rate and rhythm Lungs: Clear bilaterally GI: Gravid. No tenderness Skin: Dry and intact. No rashes or lesions BPP: 06/10 ASSESSMENT 34 yo at 35w6d Category 1 Tracing GDM A2 PLAN -Discussed heartburn in . Reviewed nonpharmacologic and pharmacologic ways to alleviate heartburn. Recommended patient start with tums when feeling heartburn and notify provider if pain not alleviated -Continue current regimen for GDMA2, including diet, activity, medications, and scheduled testing -Discussed labor precautions and kick counts. Answered all patient questions and concerns. Patient verbalizes understanding. Other Interventions Other Interventions PATIENT: GLADYS JEONG ACCT: [id number] UNIT: [id number] : 1990 LOC: [facility] ROOM / BED: TRIAGE1 / A AGE / SEX: 34 / F ADM STATUS: ADM IN SERVICE [id number] ORDERING PHYSICIAN: CANDACE MARTIN DO PROCEDURE(s): BPP - BIOPHYSICAL PROFILE REASON: GDM A2 ORDER NUMBER(s): [id number], ACCESSION NUMBER(s): [id number] EXAM: US BIOPHYSICAL PROFILE HISTORY: GDM A2 COMPARISON: US BIOPHYSICAL PROFILE on DOS: 07/18/25, US BIOPHYSICAL PROFILE on DOS: 07/14/25, US BIOPHYSICAL PROFILE on DOS: 07/11/25 TECHNIQUE: Multiple transabdominal real-time grayscale sonographic images through the gravid uterus of the fetus with duplex Doppler color flow and M-mode spectral analysis Findings/Impression: Single live intrauterine in vertex presentation with heart rate of 160 bpm. Biophysical profile was performed with 2 points for respirations, 2 points for movement, 2 points for tone and 2 points for amniotic fluid index. Biophysical profile score of 8/8. Amniotic fluid is within normal limits with XANDER 12.3 cm and MVP 4.6 cm. Normal XANDER (5-25 cm) Normal MVP (2-8 cm) Condition on Discharge: Good Disposition: Home Discharge Instructions: Diet: Consistent carbohydrate Activity: No Restrictions, As Tolerated Medications: No change. See med list Follow Up Care: Specialist: follow-up as previously scheduled on Wednesday 07/25 for scheduled NST/BPP Discharge Statement: "Patient was advised to return to the ER or call 911 if any headaches, dizziness, shortness of breath, chest pain, abdominal pain, bleeding, fevers, or worsening of medical condition. Patient was counseled about treatment plan, medications, possible side effects, patientverbalized understanding. All questions were answered to the best of my ability. This discharge took greater then 30 minutes in planning, reviewing documentation, counseling the patient, and discussing with other team members." Visit Coding OBGYN Date of Service: Jul 21, 2025 Billing Provider: CHARLI MCCULLOUGH CNM MANAGER SIMULATION Common Visit Codes: [id number] OBS CARE (HIGH) MANAGER SIMULATION Procedure Codes: 72067-20- NON-STRESS TEST CHARLI MCCULLOUGH CNM Jul 21, 2025 19:59
== END 2025-07-21 20:15 | disposition home or self-care (01) ==
LOC: LDRP 18:51
PROVIDERS: ADMIT Obstetrics & Gynecology; ATTEND Obstetrics & Gynecology
DX: O24.419 Gestational diabetes mellitus in pregnancy, unspecified control (principal); Z3A.35 35 weeks gestation of pregnancy; Z98.890 Other specified postprocedural states
CPT/HCPCS: 59025; 76819; 81002; 82962; 94760; G0378

== ENCOUNTER 2025-07-25 09:52 | Observation (INO) | payer MEDICAID ==
--- NOTE | 2025-07-25 10:48 | DVH ---
CLINICAL HISTORY: Gestational diabetes. COMPARISON: US BIOPHYSICAL PROFILE on DOS: 07/21/25, US BIOPHYSICAL PROFILE on DOS: 07/18/25, US BIOPHY SICAL PROFILE on DOS: 07/14/25 TECHNIQUE: biophysical profile was performed. Transabdominal sonographic images of the fetus we re obtained. FINDINGS: The fetus is in cephalic position. heart rate measures 147 BPM. Amniotic fluid index measures 9.5 cm. The placenta is anterior in position. BPP profile is an overall score of 8/8, with 2/2 points for breathing, with at least one episode of breathing over a 30 second duration during a 30 minute observation, 2/2 points for m ovements, with 3 or more discrete body or limb movements, 2/2 points for tone, with one or more episodes of extremity extension with return to flexion, or opening and closing of hand, and 2/ 2 points for amniotic fluid, with at least 1 pocket of amniotic fluid that measures 2 cm in 2 perpend icular planes. IMPRESSION: BPP score of 8/8.
--- NOTE | 2025-07-25 16:56 | DVHDS2 ---
Discharge Summary Date of Admission Jul 25, 2025 at 10:04 Date of Discharge: Jul 25, 2025 Admitting Diagnosis GDM A2 36+ weeks here for NST BPP both performed both reassuring. Labs/Diagnostic Data: Laboratory Results Test 07/25/25 10:41 POC Glucose 116 mg/dl (70-106) Brief Hx & Hospital Course: NST BPP performed Operations or Procedures None Condition at Discharge: Good Final Diagnosis/Problems List 36+ weeks GDM A2 reassuring Discharge Disposition: Home Discharge Instruct/Medications Diet: Consistent carbohydrate Activity: Light activity (Kick counts labor precautions) Follow Up/Referral: As scheduled Medications: Continue current meds Scheduled Calamine-Zinc Oxide (Calamine 8-8 %), 1 APPLIC EX QID Cephalexin (Keflex Capsule), 1 CAP PO QID Ciprofloxacin Hcl (Cipro), 1 TAB PO BID Metformin Hydrochloride (Metformin Hcl), 1,000 MG PO DAILY, (Reported) Methylprednisolone (Medrol Dosepak), 4 MG PO UD Metronidazole (Metronidazole), 500 MG PO TID Prednisone (Prednisone), 60 MG PO DAILY Vit W/ Ferrous Fumara ( One Daily), 1 TAB PO DAILY, (Reported) Valacyclovir Hcl (Valacyclovir Hcl), 2 TAB PO TID Scheduled PRN Acetaminophen (Acetaminophen), 500 MG PO Q4HP PRN Albuterol Sulfate (Ventolin Mdi), 90 MCG IN Q4HP PRN Ibuprofen Micronized (Ibuprofen), 600 MG PO TIDPRN PRN Discharge Statement: "Patient was advised to return to the ER or call 911 if any headaches, dizziness, shortness of breath, chest pain, abdominal pain, bleeding, fevers, or worsening of medical condition. Patient was counseled about treatment plan, medications, possible side effects, patientverbalized understanding. All questions were answered to the best of my ability. This discharge took greater then 30 minutes in planning, reviewing documentatio n, counseling the patient, and discussing with other team members." ASSESSMENT ASSESSMENT Assessment Visit Coding OBGYN Date of Service: Jul 25, 2025 Billing Provider: EMILIANO TRIVEDI DO EMAIL MARKETING ASSISTANT Common Visit Codes: 56263-SRS/OBS SAME DATE (LOW), 27038-WKU/OBS SAME DATE (MOD), 83828-WBM/OBS SAME DATE (HIGH) EMAIL MARKETING ASSISTANT Procedure Codes: 93905-30- NON-STRESS TEST EMILIANO TRIVEDI DO Jul 25, 2025 16:55
== END 2025-07-25 11:10 | disposition home or self-care (01) ==
LOC: UNDOADMOB 09:52 → LDRP 09:52 → UNDODISOB 11:10
PROVIDERS: ADMIT Obstetrics & Gynecology; ATTEND Obstetrics & Gynecology
DX: O24.419 Gestational diabetes mellitus in pregnancy, unspecified control (principal); Z3A.36 36 weeks gestation of pregnancy; Z98.890 Other specified postprocedural states
CPT/HCPCS: 59025; 76819; 81002; 82948; 82962; G0378

== ENCOUNTER 2025-07-28 04:09 | Observation (INO) | payer MEDICAID ==
--- NOTE | 2025-07-28 16:29 | DVH ---
EXAM: US BIOPHYSICAL PROFILE HISTORY: GDMA2 COMPARISON: US BIOPHYSICAL PROFILE on DOS: 07/25/25, US BIOPHYSICAL PROFILE on DOS: 07/21/25, US BIOPHY SICAL PROFILE on DOS: 07/18/25 TECHNIQUE: Multiple transabdominal real-time grayscale sonographic images through the gravid uterus of the fetus with duplex Doppler color flow and M-mode spectral analysis Findings/Impression: Single live intrauterine in vertex presentation with heart rate of 139 bpm. Biophysical profile was performed with 2 points for respirations, 2 points for movement, 2 points for tone and 2 points for amniotic fluid index. Biophysical profile score of 8/8. Amniotic fluid is within normal limits with XANDER 9.6 cm and MVP 6.9 cm. Normal XANDER (5-25 cm) Normal MVP (2-8 cm)
--- NOTE | 2025-07-29 04:14 | DVHDS2 ---
Physician Discharge Progress N Final Diagnosis: GDM 36WKS Operations or Procedures: Operations or Procedures NST REACTIVE REVIWED,SONO Condition on Discharge: Good Disposition: Home Discharge Instructions: Diet: Consistent carbohydrate Activity: Light activity Medications: NA Follow Up Care: Specialist: 1W Discharge Statement: "Patient was advised to return to the ER or call 911 if any headaches, dizziness, shortness of breath, chest pain, abdominal pain, bleeding, fevers, or worsening of medical condition. Patient was counseled about treatment plan, medications, possible side effects, patientverbalized understanding. All questions were answered to the best of my ability. This discharge took greater then 30 minutes in planning, reviewing documenta tion, counseling the patient, and discussing with other team members." Visit Coding OBGYN Date of Service: Jul 28, 2025 Billing Provider: CANDACE MARTIN DO SHOVEL ENGINEER Common Visit Codes: [id number] OBS CARE (HIGH) SHOVEL ENGINEER Procedure Codes: 03168-45- NON-STRESS TEST CANDACE MARTIN DO Jul 29, 2025 04:14
== END 2025-07-28 17:11 | disposition home or self-care (01) ==
LOC: UNDOADMOB 15:52 → LDRP 15:52 → UNDODISOB 17:11
PROVIDERS: ADMIT Obstetrics & Gynecology; ATTEND Obstetrics & Gynecology
DX: O24.419 Gestational diabetes mellitus in pregnancy, unspecified control (principal); Z3A.36 36 weeks gestation of pregnancy; Z98.890 Other specified postprocedural states
CPT/HCPCS: 59025; 76819; 81002; 82948; 82962; 94760; G0378

== ENCOUNTER 2025-08-01 09:53 | Observation (INO) | payer MEDICAID ==
--- NOTE | 2025-08-01 10:56 | DVH ---
CLINICAL HISTORY: Gestational diabetes. COMPARISON: US BIOPHYSICAL PROFILE on DOS: 07/28/25, US BIOPHYSICAL PROFILE on DOS: 07/25/25, US BIOPHY SICAL PROFILE on DOS: 07/21/25 TECHNIQUE: biophysical profile was performed. Transabdominal sonographic images of the fetus we re obtained. FINDINGS: The fetus is in cephalic position. heart rate measures 152 BPM. Amniotic fluid index measures 7.8 cm. The placenta is anterior in position without evidence of previa or abruption. Possib le nuchal cord visualized, with the umbilical cord visualized at least partly around the neck. BPP profile is an overall score of 8/8, with 2/2 points for breathing, with at least one episode of breathing over a 30 second duration during a 30 minute observation, 2/2 points for m ovements, with 3 or more discrete body or limb movements, 2/2 points for tone, with one or more episodes of extremity extension with return to flexion, or opening and closing of hand, and 2/ 2 points for amniotic fluid, with at least 1 pocket of amniotic fluid that measures 2 cm in 2 perpend icular planes. IMPRESSION: 1. BPP score of 8/8. 2. Possible nuchal cord. Findings were reported to the patient's RN by the sulfur chloride operator after the examination.
--- NOTE | 2025-08-05 13:32 | DVHDS2 ---
Physician Discharge Progress N Final Diagnosis: gdm a2 37wks Operations or Procedures: Operations or Procedures nst reactive reviwed,sono Condition on Discharge: Good Disposition: Home Discharge Instructions: Diet: Consistent carbohydrate Activity: Light activity Medications: na Follow Up Care: Specialist: 3d Discharge Statement: "Patient was advised to return to the ER or call 911 if any headaches, dizziness, shortness of breath, chest pain, abdominal pain, bleeding, fevers, or worsening of medical condition. Patient was counseled about treatment plan, medications, possible side effects, patientverbalized understanding. All questions were answered to the best of my ability. This discharge took greater then 30 minutes in planning, reviewing docume ntation, counseling the patient, and discussing with other team members." Visit Coding OBGYN Date of Service: Aug 01, 2025 Billing Provider: CANDACE MARTIN DO MORTGAGE LOAN REVIEWER Common Visit Codes: [id number] OBS CARE (HIGH) MORTGAGE LOAN REVIEWER Procedure Codes: 62024-11- NON-STRESS TEST CANDACE MARTIN DO Aug 05, 2025 13:32
== END 2025-08-01 11:23 | disposition home or self-care (01) ==
LOC: LDRP 09:53
PROVIDERS: ADMIT Obstetrics & Gynecology; ATTEND Obstetrics & Gynecology
DX: O24.419 Gestational diabetes mellitus in pregnancy, unspecified control (principal); Z3A.37 37 weeks gestation of pregnancy; Z98.890 Other specified postprocedural states
CPT/HCPCS: 59025; 76819; 81002; 82948; 82962; 94760; G0378

== ENCOUNTER 2025-08-02 17:40 | Inpatient (IN) | payer MEDICAID ==
[~2025-08-02] VITALS: Ht 30.5 cm; Wt 0.5 kg
[2025-08-02] MEDS ORDERED: LIDOCAINE 2%HCL (LOCAL ANESTH.) INJ 20ML MDV IJ PRN (17:45)
[2025-08-02] MEDS ORDERED: BUTORPHANOL TARTRATE 2 MG/1 ML VIAL IV PRN ×2 (17:45)
[2025-08-02 18:41] LABS: Hematocrit 37.8 % (36.0-46.0); Hemoglobin 12.9 g/dL (12.2-16.2); Mean Corpuscular Hemoglobin 27.7 pg (28.0-32.0); Mean Corpuscular Volume 81.1 fL (80.0-100.0); Nucleated Red Blood Cells % 0.0 %
[2025-08-02 18:56] LABS: INR 0.97 (0.9-1.15); Partial Thromboplastin Time 30.2 SEC (24.5-34.5); Prothrombin Time 10.3 sec (9.3-11.8)
[2025-08-02 18:57] LABS: Alanine Aminotransferase 22 U/L (7-40); Albumin 4.3 g/dL (3.2-4.8); Anion Gap 12 (5-15); BUN/Creatinine Ratio 13.3 (10.0-20.0); Calcium 9.4 mg/dL (8.7-10.4); Chloride 106 mmol/L (98-107); Glucose 90 mg/dL (74-106); Potassium 3.8 mmol/L (3.5-5.1); Sodium 138 mmol/L (136-145); Total Protein 7.6 g/dL (5.7-8.2)
[2025-08-02 18:58] LABS: Alkaline Phosphatase 200 U/L (46-116); Bilirubin, Total 0.5 mg/dL (0.2-1.0); Blood Urea Nitrogen 6 mg/dL (9-23); Carbon Dioxide 20 mmol/L (20-31)
[2025-08-02 19:03] LABS: Urine Protein, UAD Negative (Negative)
[2025-08-02 19:08] LABS: Amphetamine Screen, Urine Neg (NEGATIVE); Barbiturate Scree,Urine Neg (NEGATIVE); Benzodiazephine Screen, Urine Neg (NEGATIVE); Cannabinoid Screen, Urine Neg (NEGATIVE); Cocaine Screen, Urine Neg (NEGATIVE); Opiate Scree,Urine Neg (NEGATIVE); Phencyclidine Screen, Urine Neg (NEGATIVE)
--- NOTE | 2025-08-02 19:13 | DVHHP2 ---
OB CC & HPI Date Date of Admission: Aug 02, 2025 Patient Identification: : 3 Para: 2 EDC: Aug 19, 2025 EGA: 37.4 Chief Complaints: Reason for admission: rupture of membranes History of Present Complaints 34yo G3 1102 IUP@37.4wks presents with complaints of leaking amniotic fluid. Denies VB/LINARES/vision changes/RUQ pain. Endorses +FM. PNC: Routine PNC at [facility], adequate visits, PNC complicated by GDMA2. Dating based on 6wk sono, GBS unknown. OB hx: x2, uncomplicated delivery at 36w Past Medical History Cardiac: No pertinent Hx Pulmonary: Asthma Central Nervous System: No pertinent Hx GI: No pertinent Hx Hemotology/Oncology: No pertinent Hx Hepatobiliary: No pertinent Hx Psychiatric: No pertinent Hx Musculoskeletal: No pertinent Hx Rheumotologic: No pertinent Hx Infectious Disease: No peritnent Hx ENT: No pertinent Hx Renal/: No pertinent Hx Endocrine: No pertinent Hx Dermatology: No pertinent Hx Past Surgical History: Other (appendectomy 2021) OB History OB History Care: Good Care Ultrasounds: Normal mid trimester US Obstetrical Complications: Gestational Diabetes (GDMA2 taking metformin 1000mg HS) Medical Complications: None Allergies: Coded Allergies: NO KNOWN ALLERGIES (Unverified , 03/23/19) Home Meds Active Scripts Acetaminophen (Acetaminophen) 500 Mg Tab, 500 MG PO Q4HP PRN, #30 TAB Prov:SAVANAH MOLINA PAC 01/21/25 Cephalexin (KEFLEX CAPSULE) 250 Mg Cp, 1 CAP PO QID for 10 Days, #40 CAP Prov:SAVANAH MOLINA PAC 01/21/25 Calamine-Zinc Oxide (Calamine 8-8 %) 1 Tawnya Tawnya, 1 APPLIC EX QID for 10 Days, #1 BOTTLE 0 Refills Prov:ERYN PARISI DYE MIXER /24 Ibuprofen Micronized (Ibuprofen) 600 Mg Tab, 600 MG PO TIDPRN PRN for 10 Days, #30 TAB 0 Refills Prov:ERYN PARISI DYE MIXER /12/27 Methylprednisolone (Medrol Dosepak) 4 Mg Devaughn, 4 MG PO UD, #21 TAB 0 Refills UAD Prov:ERYN PARSII DYE MIXER 2/24 Valacyclovir Hcl (Valacyclovir Hcl) 500 Mg Tab, 2 TAB PO TID for 10 Days, #60 TAB 0 Refills Prov:AILINERYN F DYE MIXER 04/04/24 Metronidazole (Metronidazole) 500 Mg Tab, 500 MG PO TID for 7 Days, #21 TAB Prov:VIJAY FLORES ERICKA PAC 01/19/24 Ciprofloxacin Hcl (Cipro) 500 Mg Tab, 1 TAB PO BID for 7 Days, #14 TAB Prov:MARKVIJAY BARNETT PAC 01/19/24 Prednisone (Prednisone) 20 Mg Tab, 60 MG PO DAILY for 3 Days, #9 MG Prov:TIESHA TNA MD 10/19/23 Albuterol Sulfate (VENTOLIN MDI) 90 Mcg Ih, 90 MCG IN Q4HP PRN for 7 Days, #1 MCG Prov:TIESHA TAN MD 10/19/23 Reported Medications Metformin Hydrochloride (Metformin Hcl) 500 Mg Tab, 1000 MG PO DAILY for 30 Days, MG 07/01/25 Vit W/ Ferrous Fumara ( One Daily) Daily Tab, 1 TAB PO DAILY, #90 TAB 3 Refills 12/29/14 Current Medications Current Medications Medications (Trade) Dose Ordered Sig/Mady Route PRN Reason Start Time Stop Time Status Last Admin Lactated Ringer's 1,000 ml @ 125 mls/hr Q8H IV 08/02/25 17:45 Witch Mayra (Tucks) 1 pad PRN PRN TOP PERINEAL AREA DISCOMFORT 08/02/25 17:45 Sodium Lauryl Sulfate (Phisoderm) 240 ml PRN PRN TOP PERINEAL AREA DISCOMFORT 08/02/25 17:45 Benzocaine (Dermoplast) 1 applic PRN PRN TOP PERINEAL AREA DISCOMFORT 08/02/25 17:45 Butorphanol Tartrate (Stadol Injection) 1 mg Q4HPRN PRN IV MODERATE PAIN (4-6 PAIN SCALE) 08/02/25 17:45 Butorphanol Tartrate (Stadol Injection) 2 mg Q4HPRN PRN IV SEVERE PAIN (7-10 PAIN SCALE) 08/02/25 17:45 Lidocaine HCl (Xylocaine) 20 ml ONCE PRN IJ PERINEAL AREA DISCOMFORT 08/02/25 17:45 Family & Social History Family/Social History Past Family/Social History: denies Blood Type: O+ Rubella: not immune (Equivocal) RPR/VDRL: Negative GBS Status: Unknown (Patient reports having swab performed today) HBsAG: Negative Review of Systems Constitutional: No symptom reported Ears, Nose, & Throat: No symptom reported Eyes: No symptom reported Pulmonary/Respiratory: No symptom reported Cardiovascular: No symptom reported Gastrointestinal: No symptom reported Genitourinary: No symptom reported Musculoskeletal: No symptom reported Skin: Other (Severe scarring on inner thighs from Hidradenitis Suppurativa) Psychiatric: No symptom reported Endocrine: No symptom reported Hemotologic/Lymphatic: No symptom reported OB Admission Exam Physical Exam Vitals: VSS, See CPN EFW - 7lb 9oz performed in OB clinic today SVE - 3/50/-2, vtx HEENT: TMs Normal, Fontanelles Normal, Nasal Mucosa Normal, Eyes non-injected, Oropharynx Normal, PERRLA, Moist Membranes, EOMI Heart: Rhythm Normal Lungs: Clear Abdomen: Gravid Extremities: Normal Reflexes: Normal Pelvic Exam: 50/-2 Membranes: Ruptured Amniotic Fluid: Clear Heart Rate: 140's Accelerations: Accelerations Present Decelerations: No Decelerations Fpc Variability: Average (6-25) Contractions on Admission: 6-10 Minutes Apart Frequency of Contractions: Q6-8min Duration: 120 Intensity: Mild OB Plan Plan Admitting Diagnosis: SROM Plan: Expectant Management Other Plan: A: 34yo IUP@37.4wks SROM, clear Latent labor Gestational diabetes A2 Category I EFM GBS unknown P: Admit to L&D Informed consent obtained Risks of delaying augmentation after SROM discussed with patient. Patient verbalizes understanding and continues to decline augment. Expectant management for now due to patient's request Breast pump given to stimulate natural oxytocin monitoring per order Routine labs ordered Accucheck Q4h now, and Q2h in active labor Antibiotics for unknown GBS per order Pain mgmt PRN Frequent position changes in and out of bed encouraged Limit SVE unless necessary Intrauterine resuscitation PRN Anticipate CNM is comanaging with Dr. Cui. Visit Coding OBGYN Date of Service: Aug 02, 2025 Billing Provider: BRYCE THOMAS CNM MANAGER HOTEL Common Visit Codes: [id number] INP/OBS CARE (HIGH) MANAGER HOTEL Procedure Codes: 25643-87- NON-STRESS TEST YIFAN ANDERSONMDW Aug 02, 2025 19:13
[2025-08-02] MEDS: WITCH HAZEL-GLYCERIN PAD TOP PRN (19:47)
[2025-08-02] MEDS: PHISODERM TOP SOLN 240ML BTL TOP PRN (19:48)
[2025-08-02] MEDS: DERMOPLAST 60ML BOTTLE TOP PRN (19:48)
[2025-08-02] MEDS: LACTATED RINGER'S 1,000 ML IV SCH (19:48)
[2025-08-02] MEDS: PENICILLIN G POT 5MIL/D5 50ML 50 ML IV ONE (19:49)
[2025-08-02] MEDS ORDERED: ONDANSETRON HCL 4 MG/2 ML VIAL IV PRN (20:15)
[2025-08-02] MEDS ORDERED: NALBUPHINE HCL 10 MG/1ml INJECTION IV PRN (20:15)
[2025-08-03] MEDS: PENICILLIN G POTASSIUM 2,500,000 UNITS in D5W 5% 50 ML IV SCH (00:06)
[2025-08-03] MEDS: ROPIVACAINE HCL 100 ML ONE ×2 (03:24→09:12)
[2025-08-03] MEDS: LACT. RINGERS/OXYTOCIN 20UNITS 1,000 ML IV SCH (05:01)
--- NOTE | 2025-08-03 05:11 | DVHPN2 ---
CNM Labor Progress Note Date and Time Seen Date Seen: Aug 03, 2025 Time Seen: 04:40 Subjective Subjective Comment Patient feeling comfortable with epidural in place Objective Vital Signs VSS - See CPN Category 2 EFM with recurrent variable decelerations SVE performed. /-2 IUPC placed. Clear fluid return noted. Patient tolerated well. Monitoring Method Monitoring Method: External Heart Rate Heart Rate Baseline: 150 Heart Rate Variability: Moderate Presence of FHR Accelerations: Yes Presence of FHR Decelerations: Yes Heart Rate Type of Decel: Early Deceleraions, Variable Decelerations Are all 5 Components of the FH: Yes Contractions Contractions Frequency: Other (q3 min) Duration of Contraction: 100 Contractions Intensity: Moderate Contractions Resting Tone: Relaxed Membranes Membranes: Ruptured Amniotic Fluid Color: Clear Vaginal Exam Vag Exam Deferred: No Vaginal Exam Show: Small Medications Medications - Pitocin: Yes (2mu/min) Medication - Epidural: Yes Lab Results Lab Results Current Medications Medications (Trade) Dose Ordered Sig/Mady Start Time Stop Time Status Last Admin Dose Admin Lactated Ringer's 1,000 ml @ 125 mls/hr Q8H 08/02/25 17:45 08/03/25 05:40 125 MLS/HR Witch Mayra (Tucks) 1 pad PRN PRN 08/02/25 17:45 08/02/25 19:47 1 PAD Sodium Lauryl Sulfate (Phisoderm) 240 ml PRN PRN 08/02/25 17:45 08/02/25 19:48 240 ML Benzocaine (Dermoplast) 1 applic PRN PRN 08/02/25 17:45 08/02/25 19:48 1 APPLIC Butorphanol Tartrate (Stadol Injection) 1 mg Q4HPRN PRN 08/02/25 17:45 08/02/25 20:26 DC Butorphanol Tartrate (Stadol Injection) 2 mg Q4HPRN PRN 08/02/25 17:45 08/02/25 20:26 DC Lidocaine HCl (Xylocaine) 20 ml ONCE PRN 08/02/25 17:45 Penicillin G Potassium 50 ml @ 100 mls/hr ONCE ONCE 08/02/25 19:15 08/02/25 19:44 DC 08/02/25 19:49 100 MLS/HR Penicillin G Potassium 3436966 units/Dextrose 50 ml @ 100 mls/hr Q4H 08/02/25 23:15 08/03/25 04:01 100 MLS/HR Ondansetron HCl (Zofran) 4 mg Q4HPRN PRN 08/02/25 20:15 Oxytocin 500 ml @ 999 mls/hr Q31M ONCE 08/02/25 20:15 08/02/25 20:51 DC Oxytocin 500 ml @ 125 mls/hr Q4H ONCE 08/02/25 20:45 08/03/25 00:44 DC Nalbuphine HCl (Nubain) 10 mg Q4HP PRN 08/02/25 20:15 Oxytocin 1,000 ml @ 6 ml/hr Q24H 08/03/25 00:30 08/03/25 05:01 6 ML/HR Naloxone HCl (Narcan) 0.2 mg PRN ONCE 08/03/25 00:30 08/03/25 00:31 DC Ephedrine Sulfate (ePHEDrine SULFATE) 10 mg PRN ONCE 08/03/25 00:30 08/03/25 00:31 DC Lactated Ringer's 1,000 ml @ 1,000 mls/hr Q1H ONCE 08/03/25 00:30 08/03/25 01:29 DC 08/03/25 05:40 1,000 MLS/HR Sodium Chloride 1,000 ml @ 125 mls/hr Q8H 08/03/25 04:00 Laboratory Tests Test 08/03/25 04:07 08/02/25 17:44 Range/Units POC Glucose 106 70-106 mg/dl White Blood Count 10.0 4.4-10.8 10^3/uL Red Blood Count 4.67 4.0-5.20 10^6/uL Hemoglobin 12.9 12.2-16.2 g/dL Hematocrit 37.8 36.0-46.0 % Mean Corpuscular Volume 81.1 80.0-100.0 fL Mean Corpuscular Hemoglobin 27.7 L 28.0-32.0 pg Mean Corpuscular Hemoglobin Concent 34.2 32.0-36.0 g/dL Red Cell Distribution Width 15.2 H 11.8-14.3 % Platelet Count 280 140-450 10^3/uL Mean Platelet Volume 10.1 6.9-10.8 fL Neutrophils (%) (Auto) 61.6 37.0-80.0 % Lymphocytes (%) (Auto) 28.3 10.0-50.0 % Monocytes (%) (Auto) 4.8 0.0-12.0 % Eosinophils (%) (Auto) 4.3 0.0-7.0 % Basophils (%) (Auto) 1.0 0.0-2.0 % Neutrophils # (Auto) 6.1 1.6-8.6 10 ^3/uL Lymphocytes # (Auto) 2.8 0.4-5.4 10 ^3/uL Monocytes # (Auto) 0.5 0-1.3 10 ^3/uL Eosinophils # (Auto) 0.4 0-0.8 10 ^3/uL Basophils # (Auto) 0.1 0-0.2 10 ^3/uL Nucleated Red Blood Cells 0.0 % Prothrombin Time 10.3 9.3-11.8 sec Prothrombin Time INR 0.97 0.9-1.15 Activated Partial Thromboplast Time 30.2 24.5-34.5 SEC Urine Color Colorless Yellow Urine Clarity Turbid H Clear Urine pH 7.0 5.0-9.0 Urine Specific [place] 1.003 1.001-1.035 Urine Protein Negative Negative Urine Ketones Negative Negative Urine Blood 2+ H Negative /uL Urine Nitrite Negative Negative Urine Bilirubin Negative Negative Urine Urobilinogen Normal Negative mg/dL Urine Leukocyte Esterase 1+ Negative /uL Urine RBC 6 0 - 4 /hpf Urine Microscopic WBC 11 H 0-5 /HPF Urine Squamous Epithelial Cells Many <5 /hpf Urine Bacteria Mod H None Seen /hpf Urine Mucus Few None Seen Urine Glucose Normal Normal mg/dL Sodium Level 138 136-145 mmol/L Potassium Level 3.8 3.5-5.1 mmol/L Chloride Level 106 98-107 mmol/L Carbon Dioxide Level 20 20-31 mmol/L Anion Gap 12 5-15 Blood Urea Nitrogen 6 L 9-23 mg/dL Creatinine 0.45 L 0.550-1.02 mg/dL Glomerular Filtration Rate Calc 129 >90 mL/min BUN/Creatinine Ratio 13.3 10.0-20.0 Serum Glucose 90 74-106 mg/dL Calcium Level 9.4 8.7-10.4 mg/dL Total Bilirubin 0.5 0.2-1.0 mg/dL Aspartate Amino Transferase (AST) 23 13-40 U/L Alanine Aminotransferase (ALT) 22 7-40 U/L Alkaline Phosphatase 200 H 46-116 U/L Total Protein 7.6 5.7-8.2 g/dL Albumin 4.3 3.2-4.8 g/dL Urine Opiates Screen Neg NEGATIVE Urine Fentanyl Screen Neg NEGATIVE Urine Barbiturates Screen Neg NEGATIVE Urine Phencyclidine Screen Neg NEGATIVE Urine Amphetamines Screen Neg NEGATIVE Urine Benzodiazepines Screen Neg NEGATIVE Urine Cocaine Screen Neg NEGATIVE Urine Cannabinoids Screen Neg NEGATIVE Treponema pallidum Antibody Non-reactive Negative Hepatitis C Antibody Negative Negative Assessment Assessment A: 34yo IUP@37.5wks SROM, clear Gestational diabetes A2 Category 2 EFM GBS unknown Plan Plan Recommended Pitocin augmentation with patient again. Patient verbalizes understanding to Pitocin augment, agrees with POC. monitoring per order Initiate amnioinfusion if variables persist per protocol Accucheck Q2h IV Antibiotics for unknown GBS per order Pain mgmt: Epidural in place Frequent position changes in bed encouraged Limit SVE unless necessary Intrauterine resuscitation PRN Anticipate CNM is comanaging with Dr. Cui Plan discussed with: Patient Visit Coding OBGYN Date of Service: Aug 03, 2025 Billing Provider: BRYCE THOMAS CNM CURRICULUM COUNSELOR Common Visit Codes: [id number] INP/OBS CARE(HIGH) YIFAN ANDERSON STUDENTMDW Aug 03, 2025 05:11
[2025-08-03] MEDS: LACTATED RINGER'S 1,000 ML IV ONE (05:40)
--- NOTE | 2025-08-03 06:55 | DVHPN2 ---
Chief Complaints Patient reports: No new complaints Nursing reports: No new complaints Objective Medications Current Medications Medications (Trade) Dose Ordered Sig/Mady Route PRN Reason Start Time Stop Time Status Last Admin Benzocaine (Dermoplast) 1 applic PRN PRN TOP PERINEAL AREA DISCOMFORT 08/02/25 17:45 08/02/25 19:48 Lactated Ringer's 1,000 ml @ 125 mls/hr Q8H IV 08/02/25 17:45 08/03/25 05:40 Lidocaine HCl (Xylocaine) 20 ml ONCE PRN IJ PERINEAL AREA DISCOMFORT 08/02/25 17:45 Nalbuphine HCl (Nubain) 10 mg Q4HP PRN IV MODERATE PAIN (4-6 PAIN SCALE) 08/02/25 20:15 Ondansetron HCl (Zofran) 4 mg Q4HPRN PRN IV NAUSEA / VOMITING 08/02/25 20:15 Oxytocin 1,000 ml @ 6 ml/hr Q24H IV 08/03/25 00:30 08/03/25 05:01 Penicillin G Potassium [id number] units/Dextrose 50 ml @ 100 mls/hr Q4H IV 08/02/25 23:15 08/03/25 04:01 Sodium Chloride 1,000 ml @ 125 mls/hr Q8H IUPC 08/03/25 04:00 Sodium Lauryl Sulfate (Phisoderm) 240 ml PRN PRN TOP PERINEAL AREA DISCOMFORT 08/02/25 17:45 08/02/25 19:48 Witch Mayra (Tucks) 1 pad PRN PRN TOP PERINEAL AREA DISCOMFORT 08/02/25 17:45 08/02/25 19:47 Others ve-6cm/90/-2 at 5 am Studies Laboratory Tests 08/02/25 17:44 Test 08/02/25 17:44 Range/Units Serum Glucose 90 74-106 mg/dL Ass/Plan Assessment labor with srom gdma2 Plan pt was given option of pcs due to her noncompliancy with gdm possib of shoulder dystocia d/w pt.pt fully understands wishes to prroceed with vag del Visit Coding OBGYN Date of Service: Aug 03, 2025 Billing Provider: CANDACE MARTIN DO POCKET AND PULLEY MACHINE OPERATOR Common Visit Codes: [id number] INP/OBS CARE(HIGH) POCKET AND PULLEY MACHINE OPERATOR Procedure Codes: 22807-80- NON-STRESS TEST CANDACE MARTIN DO Aug 03, 2025 06:55
--- NOTE | 2025-08-03 09:51 | DVHPN2 ---
Chief Complaints Patient reports: No new complaints Nursing reports: No new complaints Objective Medications Current Medications Medications (Trade) Dose Ordered Sig/Mady Route PRN Reason Start Time Stop Time Status Last Admin Benzocaine (Dermoplast) 1 applic PRN PRN TOP PERINEAL AREA DISCOMFORT 08/02/25 17:45 08/02/25 19:48 Lactated Ringer's 1,000 ml @ 125 mls/hr Q8H IV 08/02/25 17:45 08/03/25 05:40 Lidocaine HCl (Xylocaine) 20 ml ONCE PRN IJ PERINEAL AREA DISCOMFORT 08/02/25 17:45 Nalbuphine HCl (Nubain) 10 mg Q4HP PRN IV MODERATE PAIN (4-6 PAIN SCALE) 08/02/25 20:15 Ondansetron HCl (Zofran) 4 mg Q4HPRN PRN IV NAUSEA / VOMITING 08/02/25 20:15 Oxytocin 1,000 ml @ 6 ml/hr Q24H IV 08/03/25 00:30 08/03/25 05:01 Penicillin G Potassium [id number] units/Dextrose 50 ml @ 100 mls/hr Q4H IV 08/02/25 23:15 08/03/25 08:00 Sodium Chloride 1,000 ml @ 125 mls/hr Q8H IUPC 08/03/25 04:00 Sodium Lauryl Sulfate (Phisoderm) 240 ml PRN PRN TOP PERINEAL AREA DISCOMFORT 08/02/25 17:45 08/02/25 19:48 Witch Mayra (Tucks) 1 pad PRN PRN TOP PERINEAL AREA DISCOMFORT 08/02/25 17:45 08/02/25 19:47 Others ve-ant lip/0/90 Studies Laboratory Tests 08/02/25 17:44 Test 08/02/25 17:44 Range/Units Serum Glucose 90 74-106 mg/dL Ass/Plan Assessment labor with srom gdma2 Plan supportive care Visit Coding OBGYN Date of Service: Aug 03, 2025 Billing Provider: CANDACE MARTIN DO RAKING MACHINE OPERATOR Common Visit Codes: [id number] INP/OBS CARE(HIGH) RAKING MACHINE OPERATOR Procedure Codes: 04538-26- NON-STRESS TEST CANDACE MARTIN DO Aug 03, 2025 09:51
[2025-08-03] MEDS: ACETAMINOPHEN 500 MG TAB or CAP PO ONE (10:02)
[2025-08-03] MEDS: ceFAZolin 1GM/50ML 50 ML IV SCH (11:31)
[2025-08-03] MEDS ORDERED: ONDANSETRON ODT 4 MG TAB PO PRN (13:00)
--- NOTE | 2025-08-03 13:35 | LDN2 ---
Labor and Delivery Note Date 08/03/25 Age 34 3 Para 3 EDC 10-17 EGA 37wks Diagnosis srom,gdma2,morbid obesity Vaginal Delivery: VTX Vacuum Assisted: Yes Placenta: Spontaneous Sex: Female Apgars 9-9 Nuchal Cord Transected: Yes Amniotic Fluid: Clear Anesthesia epidural Episiotomy: No Extension: Yes (2nd dge perineal lac) Repaired with 2-0 chromic EBL 300ml Labs Laboratory Tests 02/21/25 11:33: Hepatitis B Surface Antigen Negative, HIV (1&2) Antibody Negative, Rubella Antibody Equivocal Blood Bank 08/02/25 17:44: Blood Type O POSITIVE Complications none Conditions stable Comments/Significant Med Renata spec exam no cxal lac vaccum applied one pull bc of poor pushing effort and decls to which pt agreed Visit Coding OBGYN Date of Service: Aug 03, 2025 Billing Provider: CANDACE MARTIN DO ASSISTANT PROFESSOR IN FAMILY STUDIES Common Visit Codes: [id number] INP/OBS CARE(HIGH) ASSISTANT PROFESSOR IN FAMILY STUDIES Procedure Codes: [id number] DELIVERY ONLY CANDACE MARTIN DO Aug 03, 2025 13:35
[2025-08-03] MEDS: METHYLERGONOVINE MALEATE 0.2 MG/ML AMP IM ONE (14:43)
[2025-08-03] MEDS: LACT. RINGERS/OXYTOCIN 20UNITS 500 ML IV ONE ×2 (14:44→14:45)
[2025-08-03 15:00] VITALS: BP 124/85; PULSE 86; RESP 20; TEMP 98; O2SAT 96
[2025-08-03] MEDS ORDERED: PREN1TAB PO (17:16)
[2025-08-03] MEDS ORDERED: DOCU-265 PO (17:16)
[2025-08-03] MEDS ORDERED: IBUP-1456 PO (17:16)
[2025-08-03 18:45] VITALS: BP 116/69; PULSE 102; RESP 18; TEMP 98.8
[2025-08-03] MEDS: IBUPROFEN 600 MG TAB PO PRN (19:08)
[2025-08-03] MEDS: SODIUM CHLORIDE 0.9% 1,000 ML IUPC SCH (20:24)
[2025-08-03] MEDS: NALOXONE HCL 0.4 MG/ML VIAL IV ONE (20:24)
[2025-08-03] MEDS: DOCUSATE SOD 100 MG CAP PO SCH (21:45)
[2025-08-03 22:45] VITALS: BP 122/78; PULSE 98; RESP 20; TEMP 98.4; O2SAT 97
--- NOTE | 2025-08-04 00:33 | DVHPN2 ---
Progress Note Date Seen: Aug 04, 2025 Subjective S: pt is , voiding, flatus, no BM yet, lochia light, denies lightheadedness/LINARES/ vision changes or epigastric pain, eating and drinking well, ambulate well vital signs Vital Sign Date Time Temp Pulse Resp B/P (MAP) Pulse Ox O2 Delivery O2 Flow Rate FiO2 08/03/25 22:45 98.4 98 20 122/78 (93) 97 98.4 08/03/25 18:45 Room Air 08/03/25 11:30 0.0 Total Intake and Output 08/03/25 08/03/25 08/04/25 15:00 23:00 07:00 Output Total 550 ml 1000 ml Balance -550 ml -1000 ml medications Current Medications Medications Dose Ordered Sig/Mady Route Start Time Stop Time Status Last Admin Dose Admin Nicolas Nunez 1 pad PRN PRN TOP 08/02/25 17:45 08/02/25 19:47 1 PAD Sodium Lauryl Sulfate 240 ml PRN PRN TOP 08/02/25 17:45 08/02/25 19:48 240 ML Benzocaine 1 applic PRN PRN TOP 08/02/25 17:45 08/02/25 19:48 1 APPLIC Lidocaine HCl 20 ml ONCE PRN IJ 08/02/25 17:45 Nalbuphine HCl 10 mg Q4HP PRN IV 08/02/25 20:15 Cefazolin Sodium 50 ml @ 100 mls/hr Q8H IV 08/03/25 10:30 08/03/25 19:08 100 MLS/HR Ibuprofen 600 mg Q6HP PRN PO 08/03/25 13:00 08/03/25 19:08 600 MG Acetaminophen 650 mg Q4HP PRN PO 08/03/25 13:00 Ondansetron HCl 4 mg Q4HPRN PRN PO 08/03/25 13:00 Docusate Sodium 200 mg HS PO 08/03/25 22:00 08/03/25 21:45 200 MG laboratory and microbiology Laboratory Tests 08/02/25 17:44 Test 08/02/25 17:44 Range/Units Serum Glucose 90 74-106 mg/dL Objective O: VSS Chest: heart and lung sounds normal. Abd soft, non-tender, fundus firm, BS, no rebound or guarding, BLE: Non-tender, no edema Lochia - minimal Perineum: second degree lac, suture intact, hematoma on right labia Labs reviewed Problems(with codes): (1) Vacuum-assisted vaginal delivery (2) Second degree perineal laceration during delivery (3) GDM, class A2 Assessment/Plan 34 yo, , ppd#1 s/p VAVD doing well. Rh status + Breast feeding Rubella status equivocal Pain control with PO medications Bowel regimen encouraged P: continue PP care Needs MMR prior to d/c D/c home today Rx sent to pharmacy precaution and preeclampsia warning signs reviewed Instructed to review BCM options on [email or web address].org and discuss it at PP visit F/U with [facility] office in 2 weeks Plan discussed with: Patient MONIQUE MEADOWS Aug 04, 2025 00:33
--- NOTE | 2025-08-04 00:43 | DVHDS2 ---
Obstetrics Discharge Summary Obstetrics Discharge Summary Date of Admission: Aug 02, 2025 Date of Discharge: Aug 04, 2025 Reason For Admission: Induction of Labor Procedures: NST Intrapartum Procedures: Spontaneous vaginal deliv Procedures: None Operative Complicat: Laceration (sceond degree Perineal), Hematoma (right labial) Discharge Diagnosis: Term -Delivered Discharge Information: Activity (Unrestricted, as tolerated), Diet (Routine), Medications (rx sent to pharmacy), Instructions (no heavy lifting, nothing in vagina for 6 weeks), Discharge to (Home), Accompanied by (spouse), Discarge date (08/04/25) Visit Coding OBGYN Date of Service: Aug 04, 2025 Billing Provider: BRYCE THOMAS CNM CANDY SPREADER HELPER Common Visit Codes: 35327-BSW/OBS DISCH DAY <30MIN MONIQUE MEADOWS Aug 04, 2025 00:43
[2025-08-04 03:09] VITALS: BP 108/76; PULSE 71; RESP 16; TEMP 98.1; O2SAT 97
[2025-08-04 07:00] VITALS: BP 106/69; PULSE 65; RESP 16; TEMP 98; O2SAT 97
[2025-08-04] MEDS: ACETAMINOPHEN 325 MG TAB PO PRN (07:40)
[2025-08-04 11:00] VITALS: BP 115/61; PULSE 60; RESP 16; TEMP 98.4; O2SAT 97
== END 2025-08-04 13:20 | disposition home or self-care (01) | DRG 560 ==
LOC: LDRP 17:40 → OBSVTOIN 17:45 → LDRP 18:05
PROVIDERS: ADMIT Obstetrics & Gynecology; ATTEND Obstetrics & Gynecology
PROC: 10E0XZZ Delivery of Products of Conception, External Approach (ICD-10-PCS; principal; 2025-08-03)
PROC: 0KQM0ZZ Repair Perineum Muscle, Open Approach (ICD-10-PCS; 2025-08-03)
PROC: 3E0R3BZ Introduction of Anesthetic Agent into Spinal Canal, Percutaneous Approach (ICD-10-PCS; 2025-08-03)
PROC: 00HU33Z Insertion of Infusion Device into Spinal Canal, Percutaneous Approach (ICD-10-PCS; 2025-08-03)
DX: O24.425 Gestational diabetes mellitus in childbirth, controlled by oral hypoglycemic drugs (principal); Z37.0 Single live birth; E66.01 Morbid (severe) obesity due to excess calories; J45.909 Unspecified asthma, uncomplicated; O70.1 Second degree perineal laceration during delivery; O99.214 Obesity complicating childbirth; O76 Abnormality in fetal heart rate and rhythm complicating labor and delivery; Z3A.37 37 weeks gestation of pregnancy
CPT/HCPCS: 36415; 59025; 59409; 80053; 80307; 81001; 82948; 82962; 85025; 85610; 85730; 86780; 86803; 86850; 86900; 86901; 94760; 94762; 96360; 96361; 96365; 96366; G0378; J2540; J2590; J7060

== ENCOUNTER 2025-08-08 06:00 | Emergency (ER) | payer MEDICAID ==
[~2025-08-08] VITALS: Ht 149.9 cm; Wt 102.0 kg
[~2025-08-08 06:00] MED LIST changes: -ACET500T58 PO; -CALA1SUS2 EX; -CEPH250C PO; -CIPR-173 PO; +DOCU-265 PO; +IBUP-1456 PO; -IBUP1TAB5 PO; -MET500T PO; -METF-370 PO; -METH4PAK PO; -PRED20TA2 PO; -PREN-96 PO; +PREN1TAB PO; -VALA500T33 PO
[2025-08-08 06:02] VITALS: TEMP 99.2
--- NOTE | 2025-08-08 07:03 | ED.PDOC ---
General HPI Comments 34-year-old female presents to the ER for vaginal pain. Patient reports on giving on August 03 which was normal had a small tear. Patient was informed that she had a hematoma on the right labia and has been having pain since. She is taking ibuprofen and Tylenol for the pain. Patient does have follow up appointment with the OBGYN on August 17. Denies any other symptoms at this time. Chief Complaint: Pelvic Pain Time Seen by MD: 06:55 Primary Care Provider: Liz Reviewed notes: Nurses Notes, Medications, Allergies Allergies: Coded Allergies: NO KNOWN ALLERGIES (Unverified , 03/23/19) Home Meds Active Scripts Ibuprofen (Ibuprofen) 800 Mg Tab, 1 TAB PO TID, #90 TAB Prov:BRYCE THOMAS CNM 08/03/25 Docusate Sodium (Docusate Sodium) 100 Mg Cap, 200 MG PO HS PRN for 30 Days, #60 CAP 2 Refills Prov:BRYCE THOMAS CNM 08/03/25 Vit W/ Ferrous Fumara (Prenatrix 27-1 mg) 1 Tab Tab, 1 TAB PO DAILY for 90 Days, #90 TAB 3 Refills Prov:BRYCE THOMAS CNM 08/03/25 Albuterol Sulfate (VENTOLIN MDI) 90 Mcg Ih, 90 MCG IN Q4HP PRN for 7 Days, #1 MCG Prov:TIESHA TAN MD 10/19/23 Discontinued Reported Medications Metformin Hydrochloride (Metformin Hcl) 500 Mg Tab, 1000 MG PO DAILY for 30 Days, MG 07/01/25 Vit W/ Ferrous Fumara ( One Daily) Daily Tab, 1 TAB PO DAILY, #90 TAB 3 Refills 12/29/14 Discontinued Scripts Acetaminophen (Acetaminophen) 500 Mg Tab, 500 MG PO Q4HP PRN, #30 TAB Prov:SAVANAH MOLINA PAC 01/21/25 Cephalexin (KEFLEX CAPSULE) 250 Mg Cp, 1 CAP PO QID for 10 Days, #40 CAP Prov:SAVANAH MOLINA PAC 01/21/25 Calamine-Zinc Oxide (Calamine 8-8 %) 1 Tawnya Tawnya, 1 APPLIC EX QID for 10 Days, #1 BOTTLE 0 Refills Prov:ERYN PARISI ARMOR RECONNAISSANCE VEHICLE CREWMAN 04/04/24 Ibuprofen Micronized (Ibuprofen) 600 Mg Tab, 600 MG PO TIDPRN PRN for 10 Days, #30 TAB 0 Refills Prov:ERYN PARISI ARMOR RECONNAISSANCE VEHICLE CREWMAN 04/04/24 Methylprednisolone (Medrol Dosepak) 4 Mg Devaughn, 4 MG PO UD, #21 TAB 0 Refills UAD Prov:ERYN PARISI ARMOR [employer]ONNAISSANCE VEHICLE CREWMAN 04/04/24 Valacyclovir Hcl (Valacyclovir Hcl) 500 Mg Tab, 2 TAB PO TID for 10 Days, #60 TAB 0 Refills Prov:ERYN PARISI ARMOR [employer]ONNAISSANCE VEHICLE CREWMAN 04/04/24 Metronidazole (Metronidazole) 500 Mg Tab, 500 MG PO TID for 7 Days, #21 TAB Prov:VIJAY FLORES [facility] 01/19/24 Ciprofloxacin Hcl (Cipro) 500 Mg Tab, 1 TAB PO BID for 7 Days, #14 TAB Prov:[facility]AY [facility] 01/19/24 Prednisone (Prednisone) 20 Mg Tab, 60 MG PO DAILY for 3 Days, #9 MG Prov:TIESHA TAN MD 10/19/23 Information Source: Patient Mode of Arrival: Ambulatory Severity: Moderate Inability to void: Moderate Timing: Days Duration: Since onset, Days Prehospital treatment: None Onset: Other () Symptoms: Other (Hematoma on the labia) History of: None Location: None associated signs and symptoms: None Past Medical History PAST MEDICAL HISTORY: Asthma Surgical History: Appendectomy COIL WINDER STRAP History: No Pertinent COIL WINDER STRAP History Family History Family History: Reviewed,noncontributory to illness, Unknown Social History Smoker: Unknown Alcohol: Unknown Drugs: Unknown Lives In: Home Constitutional: denies: chills, diaphoresis, fatigue, fever, malaise, sweats, weakness, others EENTM: denies: blurred vision, double vision, ear bleeding, ear discharge, ear drainage, ear pain, ear ringing, eye pain, eye redness, hearing loss, mouth pain, mouth swelling, nasal discharge, nose bleeding, nose congestion, nose pain, photophobia, tearing, throat pain, throat swelling, voice changes, others Respiratory: denies: cough, hemoptysis, orthopnea, SOB at rest, shortness of breath, SOB with excertion, stridor, wheezing, others Cardiovascular: denies: chest pain, dizzy spells, diaphoresis, Dyspnea on exertion, edema, irregular heart beat, left arm pain, lightheadedness, palpitations, PND, syncope, others Gastrointestinal: denies: abdomen distended, abdominal pain, blood streaked bowels, constipated, diarrhea, dysphagia, difficulty swallowing, hematemesis, melena, nausea, poor appetite, poor fluid intake, rectal bleeding, rectal pain, vomiting, others Genitourinary: reports: others (Hematoma on the labia); denies: abnormal vagina bleeding, burning, dyspareunia, dysuria, flank pain, frequency, hematuria, incontinence, pain, , vagina discharge, urgency Neurological: denies: dizziness, fainting, headache, left sided numbness, left sided weakness, numbness, paresthesia, pre-existing deficit, right sided numbness, right sided weakness, seizure, speech problems, tingling, tremors, weakness, others Musculoskeletal: denies: back pain, gout, joint pain, joint swelling, muscle pain, muscle stiffness, neck pain, others Integumetry: denies: bruises, change in color, change in hair/nails, dryness, laceration, lesions, lumps, rash, wounds, others Allergic/Immunocompromised: denies: Difficulty Healing, Frequent Infections, Hives, Itching, others Hematologic/Lymphatic: denies: anemia, blood clots, easy bleeding, easy bruising, swollen glands, others Endocrine: denies: excessive hunger, excessive sweating, excessive thirst, excessive urination, flushing, intolerance to cold, intolerance to heat, unexplained weight gain, unexplained weight loss, others Psychiatric: denies: anxiety, bipolar disorder, depression, hopeless, panic disorder, schizophrenia, sleepless, suicidal, others All Other Systems: Reviewed and Negative Physical Exam Exam Comments 3 cm firm mass on the right labia, TTP, no surrounding erythema General Appearance: No Apparent Distress, Normal HEENT: Normal ENT Inspection, Pharynx Normal, TMs Normal Neck: Full Range of Motion, Non-Tender, Normal, Normal Inspection Respiratory: Chest Non-Tender, Lungs Clear, No Accessory Muscle Use, No Respiratory Distress, Normal Breath Sounds Cardiovascular: No Edema, No JVD, No Murmur, No Gallop, Normal Peripheral Pulses, Regular Rate/Rhythm Breast Exam: Deferred Gastrointestinal: No Organomegaly, Non Tender, No Pulsatile Mass, Normal Bowel Sounds, Soft Genitalia: Deferred Pelvic: Mass (View exam comments) Rectal: Deferred Extremities: No calf tenderness, Normal capillary refill, Normal inspection, Normal range of motion, Non-tender, No pedal edema Musculoskeletal : Apperance: Normal Neurologic: Alert, sales and management trainee II-XII nml as Tested, No Motor Deficits, Normal Affect, Normal Mood, No Sensory Deficits Cerebellar Function: Normal Reflexes: Normal Skin: Dry, Normal Color, Warm Lymphatic: No Adenopathy Was a procedure done? Was a procedure done?: No Differential Diagnosis Kidney stone (Female): Other X-Ray, Labs, Meds, VS Vital Signs Date Time Temp Pulse Resp B/P (MAP) Pulse Ox O2 Delivery O2 Flow Rate FiO2 08/08/25 08:22 64 18 128/71 (90) 99 08/08/25 08:22 64 18 99 Room Air 08/08/25 06:02 99.2 78 16 146/70 96 99.2 Lab Test 08/08/25 07:20 Range/Units White Blood Count 8.3 4.4-10.8 10^3/uL Red Blood Count 4.41 4.0-5.20 10^6/uL Hemoglobin 12.2 12.2-16.2 g/dL Hematocrit 36.7 36.0-46.0 % Mean Corpuscular Volume 83.1 80.0-100.0 fL Mean Corpuscular Hemoglobin 27.8 L 28.0-32.0 pg Mean Corpuscular Hemoglobin Concent 33.4 32.0-36.0 g/dL Red Cell Distribution Width 15.1 H 11.8-14.3 % Platelet Count 309 140-450 10^3/uL Mean Platelet Volume 9.8 6.9-10.8 fL Neutrophils (%) (Auto) 62.3 37.0-80.0 % Lymphocytes (%) (Auto) 25.8 10.0-50.0 % Monocytes (%) (Auto) 3.4 0.0-12.0 % Eosinophils (%) (Auto) 6.7 0.0-7.0 % Basophils (%) (Auto) 1.8 0.0-2.0 % Neutrophils # (Auto) 5.2 1.6-8.6 10 ^3/uL Lymphocytes # (Auto) 2.1 0.4-5.4 10 ^3/uL Monocytes # (Auto) 0.3 0-1.3 10 ^3/uL Eosinophils # (Auto) 0.6 0-0.8 10 ^3/uL Basophils # (Auto) 0.2 0-0.2 10 ^3/uL Nucleated Red Blood Cells 0.0 % Sodium Level 143 # 136-145 mmol/L Potassium Level 4.5 3.5-5.1 mmol/L Chloride Level 108 H 98-107 mmol/L Carbon Dioxide Level 25 20-31 mmol/L Anion Gap 10 5-15 Blood Urea Nitrogen 12 9-23 mg/dL Creatinine 0.65 # 0.550-1.02 mg/dL Glomerular Filtration Rate Calc 118 >90 mL/min BUN/Creatinine Ratio 18.5 10.0-20.0 Serum Glucose 100 74-106 mg/dL Calcium Level 8.9 8.7-10.4 mg/dL [place] [address] Ph: [phone] DIAGNOSTIC IMAGING Diagnostic Imaging Report : [id number] Signed PATIENT: GLADYS JEONG ACCT: [id number] UNIT: [id number] : 1990 LOC: ER ROOM / BED: / AGE / SEX: 34 / F ADM STATUS: REG ER SERVICE [id number] ORDERING PHYSICIAN: ERYN PARISI NP PROCEDURE(s): PELUS - PELVIC REASON: R/o abscess, Pain to right labia ORDER NUMBER(s): [id number], ACCESSION NUMBER(s): [id number] Exam: US PELVIC Date: 08/08/2025 07:14 AM Clinical History: R/o abscess, Pain to right labia Comparison: CT CT AB PEL WO CON-NO ORAL OR IV on DOS: 01/18/24, ABDOMEN LIMITED on DOS: 03/17/22, PELVIC on DOS: 03/17/22, PELUS on DOS: 03/17/22, CT AB PEL WITH IV CON ONLY on DOS: 03/17/22 Technique: Targeted sonographic evaluation of the soft tissues of the right labia was obtained utilizing grayscale and color Doppler imaging. Findings/Impression: Heterogeneous edema with skin thickening and hyperemia is visualized in the right medial labia which may represent hematoma although superimposed infection can not be excluded. No drainable fluid collection. ATED BY: CONSTANTIN LEONG MD DICTATED DATE/TIME: 08/08/25808 SIGNED BY: CONSTANTIN LEONG MD SIGNED DATE/TIME: 08/08/25808 CC: X-Ray, Labs, Meds, VS Comment 34-year-old female presents to the ER with a prior medical history of asthma: Surgical history of hysterectomy in the chief complaint of pelvic pain. Patient arrives alert and oriented, ABC's intact, afebrile, vital signs stable, saturating well in room air Peripheral IV insertion+ labs were ordered. CBC was ordered to exclude anemia, blood loss, or infection. BMP was ordered to exclude electrolyte abnormalities, renal failure, dehydration, hyperglycemia Diagnostic imaging ordered by me and results interpreted by radiology : Pelvic ultrasound Heterogeneous edema with skin thickening and hyperemia is visualized in the right medial labia which may represent hematoma although superimposed infection can not be excluded. No drainable fluid collection. In the ER pt declined tx d/t her External notes reviewed. Test results and diagnostic imaging interpreted. All diagnostic findings, discharge care, education and instructions provided Follow-up with PCP in 1-2 days Patient verbalized understanding and agreed to treatment plan Vital signs stable, afebrile, no acute distress noted Patient ambulatory with strong steady gait Advised to return precautions for any new or worsening symptoms, return to ER immediately for re-evaluation Patient is aware that the purpose of this visit was for an acute medical emergency requiring emergent stabilization. Chronic conditions, including malignancies have not been ruled out. Patient is instructed to follow up with PCP as directed and discharge instructions for continued care and workup. If unable to arrange follow-up, patient is to return to the emergency department for reassessment. Patient (parent or legal guardian if applicable) was given verbal and written discharge instructions and acknowledges understanding. Additional MDM Review of External, Non-ED records: External records reviewed. Discussion with independent historian (EMS, family) history obtained from the patient/parents (if applicable) at bedside Chronic conditions affecting care: None Social determinants of health affecting care: None Consideration of admission (observation or admission): I considered escalation of care to admission for this patient, however given the reassuring workup, the patient is safe for outpatient management. Discussion with the Radiology: No Tests considered but not performed: Prescription medication considered but not given: 12 lead EKG interpretation: Time of 1ST Reevaluation: 07:25 Reevaluation 1ST: Improved Patient Education/Counseling: Diagnosis, Treatment, Prognosis Family Education/Counseling: No Family Present SEPSIS Sepsis Screen Date sepsis recognized/suspect: Aug 08, 2025 Time Sepsis recognized/suspect: 06 Recent Procedure: No On Antibiotic Therapy: No Respiratory Rate >20: No Heart Rate >90: No Temp<36 C (96.8 F) or >38.3 C: No SBP <90 or MAP <65 mmHG: No New Acute Mental Status Change: No Is the patient on CPAP, BIPAP,: No Physician Orders Pelvic (08/08/25 06:58) Vital Signs Date Time Temp Pulse Resp B/P (MAP) Pulse Ox O2 Delivery O2 Flow Rate FiO2 08/08/25 08:22 64 18 128/71 (90) 99 08/08/25 08:22 64 18 99 Room Air 08/08/25 06:02 99.2 78 16 146/70 96 99.2 Laboratory Tests Test 08/08/25 07:20 White Blood Count 8.3 10^3/uL (4.4-10.8) Departure 1 Departure Time of Disposition: 08:40 Impression: Primary Impression: Vaginal hematoma Disposition: 01 HOME / SELF CARE / HOMELESS Condition: Stable Discharged With: Self Critical Care Note Critical Care Time?: No Stability Stability form required: No Heart Score Heart Score: Heart Score Response (Comments) Value History N/A 0 EKG N/A 0 Age N/A 0 Risk Factors N/A 0 Troponin N/A 0 Total 0 I personally scribed for ERYN PARISI NP ([facility]) on 08/08/25 at 07:03. Electronically submitted by Wilmar Henriquez ([employer]). I personally scribed for ERYN PARISI NP ([facility]) on 08/08/25 at 08:28. Electronically submitted by Wilmar Henriquez ([employer]). ERYN PARISI NP Aug 08, 2025 07:03
[2025-08-08 07:32] LABS: Hematocrit 36.7 % (36.0-46.0); Hemoglobin 12.2 g/dL (12.2-16.2); Mean Corpuscular Hemoglobin 27.8 pg (28.0-32.0); Mean Corpuscular Volume 83.1 fL (80.0-100.0); Nucleated Red Blood Cells % 0.0 %
[2025-08-08 07:41] LABS: Potassium 4.5 mmol/L (3.5-5.1); Sodium 143 mmol/L (136-145)
[2025-08-08 07:42] LABS: Anion Gap 10 (5-15); Calcium 8.9 mg/dL (8.7-10.4); Carbon Dioxide 25 mmol/L (20-31)
[2025-08-08 07:44] LABS: Chloride 108 mmol/L (98-107)
[2025-08-08 07:47] LABS: BUN/Creatinine Ratio 18.5 (10.0-20.0); Blood Urea Nitrogen 12 mg/dL (9-23); Glucose 100 mg/dL (74-106)
--- NOTE | 2025-08-08 08:12 | DVH ---
Exam: US PELVIC Date: 08/08/2025 07:14 AM Clinical History: R/o abscess, Pain to right labia Comparison: CT CT AB PEL WO CON-NO ORAL OR IV on DOS: 01/18/24, ABDOMEN LIMITED on DOS: 03/17/22, PELVI C on DOS: 03/17/22, PELUS on DOS: 03/17/22, CT AB PEL WITH IV CON ONLY on DOS: 03/17/22 Technique: Targeted sonographic evaluation of the soft tissues of the right labia was obtained utilizing graysca le and color Doppler imaging. Findings/Impression: Heterogeneous edema with skin thickening and hyperemia is visualized in the right medial labia which may represent hematoma although superimposed infection can not be excluded. No drainable fluid collec tion.
[2025-08-08 08:22] VITALS: BP 128/71; PULSE 64; RESP 18; O2SAT 99
[2025-08-08] MEDS ORDERED: HYDR-4902 PO (08:47)
== END 2025-08-08 08:48 | disposition home or self-care (01) ==
LOC: ER 06:00
DX: S30.23XA Contusion of vagina and vulva, initial encounter (principal); J45.909 Unspecified asthma, uncomplicated; Z90.49 Acquired absence of other specified parts of digestive tract; Z90.710 Acquired absence of both cervix and uterus; Z79.899 Other long term (current) drug therapy; X58.XXXA Exposure to other specified factors, initial encounter; Y93.89 Activity, other specified; Y92.89 Other specified places as the place of occurrence of the external cause; Y99.8 Other external cause status
CPT/HCPCS: 36415; 76856; 80048; 85025

== ENCOUNTER 2025-08-18 18:16 | Emergency (ER) | payer MEDICAID ==
[~2025-08-18] VITALS: Ht 149.9 cm; Wt 93.8 kg
[~2025-08-18 18:16] MED LIST changes: +HYDR-4902 PO
--- NOTE | 2025-08-18 19:40 | ED.PDOC ---
History of Present Illness HPI Comments This patient is a morbidly obese 34-year-old female who is one month who arrives the ED today for evaluation of blood pressure concerns that the patient believes has given her headache. Patient states that she had an elevated blood pressure at home earlier today and was concerned that she may have preeclampsia. Advised the patient that is that would not be the diagnosis if she had elevated blood pressure, and the patient denied any blood pressure issues during . Patient states a history of anxiety and has felt anxiety today based on blood pressure concerns. Patient was mildly hypertensive on arrival. Chief Complaint: Headache Time Seen by MD: 18:31 Primary Care Provider: Liz Reviewed Notes: Nurses Notes Allergies: Coded Allergies: NO KNOWN ALLERGIES (Unverified , 03/23/19) Home Meds Active Scripts Hydrocodone-Acetaminophen (Hydrocodone Bitartrate/AC 5-325 mg) 1 Tab Tab, 1 TAB PO DAILYP PRN for 5 Days, #5 TAB 0 Refills Prov:ERYN PARISI PROGRAM INSTRUCTOR 08/08/25 Ibuprofen (Ibuprofen) 800 Mg Tab, 1 TAB PO TID, #90 TAB Prov:BRYCE THOMAS CNM 08/03/25 Docusate Sodium (Docusate Sodium) 100 Mg Cap, 200 MG PO HS PRN for 30 Days, #60 CAP 2 Refills Prov:BRYCE THOMAS CNM 08/03/25 Vit W/ Ferrous Fumara (Prenatrix 27-1 mg) 1 Tab Tab, 1 TAB PO DAILY for 90 Days, #90 TAB 3 Refills Prov:BRYCE THOMAS CNM 08/03/25 Albuterol Sulfate (VENTOLIN MENG) 90 Mcg Ih, 90 MCG IN Q4HP PRN for 7 Days, #1 MCG Prov:TIESHA TAN MD 10/19/23 Information Source: Patient, Friend Mode of Arrival: Ambulatory Severity: Mild Timing: Hours Duration: Hours Prehospital treatment: Other (Blood pressure reading) Past Medical History PAST MEDICAL HISTORY: Anxiety, Asthma Surgical History: Appendectomy SAIL MAKER History: No Pertinent SAIL MAKER History Family History Family History: Reviewed,noncontributory to illness, Unknown Social History Smoker: Non-Smoker Alcohol: Denies ETOH Use Drugs: Denies Drug Use Lives In: Home Constitutional: denies: chills, diaphoresis, fatigue, fever, malaise, sweats, weakness, others EENTM: denies: blurred vision, double vision, ear bleeding, ear discharge, ear drainage, ear pain, ear ringing, eye pain, eye redness, hearing loss, mouth pain, mouth swelling, nasal discharge, nose bleeding, nose congestion, nose pain, photophobia, tearing, throat pain, throat swelling, voice changes, others Respiratory: denies: cough, hemoptysis, orthopnea, SOB at rest, shortness of breath, SOB with excertion, stridor, wheezing, others Cardiovascular: denies: chest pain, dizzy spells, diaphoresis, Dyspnea on exertion, edema, irregular heart beat, left arm pain, lightheadedness, palpitations, PND, syncope, others Gastrointestinal: denies: abdomen distended, abdominal pain, blood streaked bowels, constipated, diarrhea, dysphagia, difficulty swallowing, hematemesis, me brenda, nausea, poor appetite, poor fluid intake, rectal bleeding, rectal pain, vomiting, others Genitourinary: denies: abnormal vagina bleeding, burning, dyspareunia, dysuria, flank pain, frequency, hematuria, incontinence, pain, , vagina discharge, urgency, others Neurological: reports: headache; denies: dizziness, fainting, left sided numbness, left sided weakness, numbness, paresthesia, pre-existing deficit, right sided numbness, right sided weakness, seizure, speech problems, tingling, tremors, weakness, others Musculoskeletal: denies: back pain, gout, joint pain, joint swelling, muscle pain, muscle stiffness, neck pain, others Integumetry: denies: bruises, change in color, change in hair/nails, dryness, laceration, lesions, lumps, rash, wounds, others Allergic/Immunocompromised: denies: Difficulty Healing, Frequent Infections, Hives, Itching, others Hematologic/Lymphatic: denies: anemia, blood clots, easy bleeding, easy bruising, swollen glands, others Endocrine: denies: excessive hunger, excessive sweating, excessive thirst, excessive urination, flushing, intolerance to cold, intolerance to heat, unexplained weight gain, unexplained weight loss, others Psychiatric: denies: anxiety, bipolar disorder, depression, hopeless, panic disorder, schizophrenia, sleepless, suicidal, others Physical Exam General Appearance: Mild Distress (Patient was mildly anxious at time of evaluation due to blood pressure concerns.), Obese HEENT: Normal ENT Inspection, Pharynx Normal, TMs Normal Neck: Full Range of Motion, Non-Tender, Normal, Normal Inspection Respiratory: Chest Non-Tender, Lungs Clear, No Accessory Muscle Use, No Respiratory Distress, Normal Breath Sounds Cardiovascular: No Edema, No JVD, No Murmur, No Gallop, Normal Peripheral Pulses, Regular Rate/Rhythm Breast Exam: Deferred Gastrointestinal: No Organomegaly, Non Tender, No Pulsatile Mass, Normal Bowel Sounds, Soft Genitalia: Deferred Pelvic: Deferred Rectal: Deferred Extremities: No calf tenderness, Normal inspection Neurologic: Alert Cerebellar Function: NOT DONE Reflexes: NOT DONE Skin: Dry, Normal Color, Warm Lymphatic: No Adenopathy Was a procedure done? Was a procedure done?: No Differential Dx Considerations may include: Anxiety, elevated blood pressure X-Ray, Labs, Meds, VS Vital Signs Date Time Temp Pulse Resp B/P (MAP) Pulse Ox O2 Delivery O2 Flow Rate FiO2 08/18/25 18:18 99.2 74 18 148/93 98 99.2 X-Ray, Labs, Meds, VS Comment Advised patient that there was no intervention that was required today. Patient has been advised to ascertain a blood pressure cuff and a blood pressure journal and take to readings a day for 30 days to assess her true blood pressure. Patient should discuss blood pressure concerns with the primary care provider after accumulating that month's worth of readings. Time of 1ST Reevaluation: 19:38 Reevaluation 1ST: Unchanged Consultation: PCP Patient Education/Counseling: Diagnosis, Treatment Family Education/Counseling: Diagnosis, Treatment SEPSIS Sepsis Screen Date sepsis recognized/suspect: Aug 18, 2025 Time Sepsis recognized/suspect: 1818 Recent Procedure: No On Antibiotic Therapy: No Respiratory Rate >20: No Heart Rate >90: No Temp<36 C (96.8 F) or >38.3 C: No SBP <90 or MAP <65 mmHG: No New Acute Mental Status Change: No Is the patient on CPAP, BIPAP,: No Vital Signs Date Time Temp Pulse Resp B/P (MAP) Pulse Ox O2 Delivery O2 Flow Rate FiO2 08/18/25 18:18 99.2 74 18 148/93 98 99.2 Departure 1 Departure Time of Disposition: 19:39 Impression: Primary Impression: Headache Additional Impression: Elevated blood pressure reading Disposition: HOME / SELF CARE / HOMELESS Condition: Stable Additional Instructions: Advised patient follow up with the primary care provider for continued evaluation and management of possible hypertensive concerns. Discharged With: Self, Friend Critical Care Note Critical Care Time?: No Stability Stability form required: No Heart Score Heart Score: Heart Score Response (Comments) Value History N/A 0 EKG N/A 0 Age N/A 0 Risk Factors N/A 0 Troponin N/A 0 Total 0 SAVANAH MOLINA PAC Aug 18, 2025 19:40
[2025-08-18 20:35] VITALS: BP 138/81; RESP 17; TEMP 98.7
[2025-08-18 20:37] VITALS: PULSE 73
[2025-08-18 20:38] VITALS: O2SAT 97
== END 2025-08-18 20:35 | disposition home or self-care (01) ==
LOC: ER 18:16
DX: R51.9 Headache, unspecified (principal); R03.0 Elevated blood-pressure reading, without diagnosis of hypertension; F41.9 Anxiety disorder, unspecified; J45.909 Unspecified asthma, uncomplicated; I10 Essential (primary) hypertension; E66.01 Morbid (severe) obesity due to excess calories; Z79.1 Long term (current) use of non-steroidal anti-inflammatories (NSAID); Z90.49 Acquired absence of other specified parts of digestive tract; Z68.41 Body mass index [BMI] 40.0-44.9, adult

== ENCOUNTER 2025-10-02 20:24 | Emergency (ER) | payer MEDICAID ==
[~2025-10-02] VITALS: Ht 152.4 cm; Wt 100.2 kg
[2025-10-02 20:27] VITALS: BP 121/73; PULSE 121; RESP 22; TEMP 98.2; O2SAT 94
--- NOTE | 2025-10-02 22:19 | ED.PDOC ---
Musculoskeletal HPI Comments 34 year-old female presents to the ED for ingrown toenail as of X2 weeks, since worsening. Patient has no further complaints or modifying factors at this time. Patient denies symptoms of dizziness, weakness, fever, or chills. Per nursing staff, patient was tachycardiac with a HR of 121 upon initial evaluation. Chief Complaint: Lower Extremity Time Seen by MD: 20:29 Primary Care Provider: Liz Reviewed Notes: Medications, Allergies Allergies: Coded Allergies: NO KNOWN ALLERGIES (Unverified , 03/23/19) Home Meds Active Scripts Hydrocodone-Acetaminophen (Hydrocodone Bitartrate/AC 5-325 mg) 1 Tab Tab, 1 TAB PO DAILYP PRN for 5 Days, #5 TAB 0 Refills Prov:ERYN PARISI RAM CAR OPERATOR 08/08/25 Ibuprofen (Ibuprofen) 800 Mg Tab, 1 TAB PO TID, #90 TAB Prov:BRYCE THOMASM 08/03/25 Docusate Sodium (Docusate Sodium) 100 Mg Cap, 200 MG PO HS PRN for 30 Days, #60 CAP 2 Refills Prov:BRYCE THOMAS CNM 08/03/25 Vit W/ Ferrous Fumara (Prenatrix 27-1 mg) 1 Tab Tab, 1 TAB PO DAILY for 90 Days, #90 TAB 3 Refills Prov:BRYCE THOMAS CNM 08/03/25 Albuterol Sulfate (VENTOLIN MDI) 90 Mcg Ih, 90 MCG IN Q4HP PRN for 7 Days, #1 MCG Prov:TIESHA TAN MD 10/19/23 Information Source: Patient Mode of Arrival: Ambulatory Timing: Weeks Severity: Moderate Pain: Moderate Symptoms: Pain Associated signs and symptoms: Other (ingrown toenail ) Past Medical History PAST MEDICAL HISTORY: Anxiety, Asthma Surgical History: Appendectomy MODULAR HOME CREW MEMBER History: No Pertinent MODULAR HOME CREW MEMBER History Family History Family History: Reviewed,noncontributory to illness, Unknown Social History Smoker: Non-Smoker Alcohol: Denies ETOH Use Drugs: Denies Drug Use Lives In: Home Constitutional: reports: others (ingrown toenail ); denies: chills, diaphoresi s, fatigue, fever, malaise, sweats, weakness EENTM: denies: blurred vision, double vision, ear bleeding, ear discharge, ear drainage, ear pain, ear ringing, eye pain, eye redness, hearing loss, mouth pain, mouth swelling, nasal discharge, nose bleeding, nose congestion, nose pain, photophobia, tearing, throat pain, throat swelling, voice changes, others Respiratory: denies: cough, hemoptysis, orthopnea, SOB at rest, shortness of breath, SOB with excertion, stridor, wheezing, others Cardiovascular: denies: chest pain, dizzy spells, diaphoresis, Dyspnea on exertion, edema, irregular heart beat, left arm pain, lightheadedness, palpitations, PND, syncope, others Gastrointestinal: denies: abdomen distended, abdominal pain, blood streaked bowels, constipated, diarrhea, dysphagia, difficulty swallowing, hematemesis, melena, nausea, poor appetite, poor fluid intake, rectal bleeding, rectal pain, vomiting, others Genitourinary: denies: abnormal vagina bleeding, burning, dyspareunia, dysuria, flank pain, frequency, hematuria, incontinence, pain, , vagina discharge, urgency, others Neurological: denies: dizziness, fainting, headache, left sided numbness, left sided weakness, numbness, paresthesia, pre-existing deficit, right sided numbness, right sided weakness, seizure, speech problems, tingling, tremors, weakness, others Musculoskeletal: denies: back pain, gout, joint pain, joint swelling, muscle pain, muscle stiffness, neck pain, others Integumetry: denies: bruises, change in color, change in hair/nails, dryness, laceration, lesions, lumps, rash, wounds, others Allergic/Immunocompromised: denies: Difficulty Healing, Frequent Infections, Hives, Itching, others Hematologic/Lymphatic: denies: anemia, blood clots, easy bleeding, easy bruising, swollen glands, others Endocrine: denies: excessive hunger, excessive sweating, excessive thirst, excessive urination, flushing, intolerance to cold, intolerance to heat, unexplained weight gain, unexplained weight loss, others Psychiatric: denies: anxiety, bipolar disorder, depression, hopeless, panic disorder, schizophrenia, sleepless, suicidal, others All Other Systems: Reviewed and Negative Differential Diagnosis EXT Differential Diagnosis: Cellulitis Other Differential Diagnosis ingrown toenail X-Ray, Labs, Meds, VS Vital Signs Date Time Temp Pulse Resp B/P (MAP) Pulse Ox O2 Delivery O2 Flow Rate FiO2 10/02/25 20:27 98.2 121 22 121/73 94 98.2 Time of 1ST Reevaluation: 23:30 Reevaluation 1ST: Unchanged Patient Education/Counseling: Diagnosis, Treatment Family Education/Counseling: No Family Present Critical Care Note Critical Care Time?: No Stability Stability form required: No Heart Score Heart Score: Heart Score Response (Comments) Value History N/A 0 EKG N/A 0 Age N/A 0 Risk Factors N/A 0 Troponin N/A 0 Total 0 I personally scribed for ER ([email or web address]) on 10/02/25 at 22:19. Electronically submitted by Verena DanielleNumerex). ER Oct 02, 2025 22:19 ANGELO CASILLAS EDUCATIONAL THERAPY TEACHER Oct 03, 2025 01:06
== END 2025-10-03 01:05 | disposition left against medical advice (07) ==
LOC: ER 20:24
DX: L60.0 Ingrowing nail (principal)